=== PATIENT | female | born 1970 | race Caucasian/White ===

== ENCOUNTER 2020-10-19 07:28 | Inpatient (IN) ==
--- NOTE | 2020-10-11 10:36 | PAT Medication Instructions ---
Medication Instructions Date of Service October 11, 2020 Home Medications cholecalciferol (vitamin D3) [Vitamin D3] 0 mcg PO DAILY multivitamin 1 tab PO DAILY omeprazole magnesium [Prilosec OTC] 20 mg PO DAILY PRN turmeric 0 mg PO DAILY ascorbic acid (vitamin C) [Vitamin C] 500 mg PO DAILY ibuprofen 400 mg PO Q8H PRN ASK your surgeon for instructions ibuprofen 400 mg PO Q8H PRN STOP taking 2 weeks before surgery (or as soon as possible if surgery is within 2 weeks) turmeric 0 mg PO DAILY DO NOT take the morning of surgery cholecalciferol (vitamin D3) [Vitamin D3] 0 mcg PO DAILY multivitamin 1 tab PO DAILY ascorbic acid (vitamin C) [Vitamin C] 500 mg PO DAILY Take morning of surgery With a small sip of water, OTHERWISE NOTHING TO EAT OR DRINK AFTER MIDNIGHT: omeprazole magnesium [Prilosec OTC] 20 mg PO DAILY PRN (if needed) Take evening before surgery omeprazole magnesium [Prilosec OTC] 20 mg PO DAILY PRN(if needed) Other Notes If you have any questions please call us at [phone] or [phone] or [phone] or [phone]
--- NOTE | 2020-10-12 09:30 | Anesthesiology Consultation ---
Date of Service October 12, 2020 Assessment & Plan (1) Encounter for pre-operative examination: Chart Review Chart Review: Acceptable Risk for Surgery (pending preop Covid testing and medical necessity statement ) and Patient seen in Pre Admission Testing - Check BSG AM DOS Surgeon's office and patient informed of newly diagnosed DM with Hgb A1C of 7.3 and elevated random glucose. Did send note to PCP with lab results for patient so that patient can follow up as an outpatient. -Surgery will be inpatient procedure- still awaiting medical necessity from surgeon's office. Per [facility] appt on 10/12/20, patient denies any recent travel. No known Covid positive contacts or Covid related symptoms. Pt did test Covid positive on Sep 08, 2020 at [facility]- at that time patient had aches, chills, cough, no smell/no taste. Pt has since completely recovered. Pt had preop Covid testing 10/12/20 at [facility] appt= will await results. History Surgery Operation Date: 10/19/20 12:20 Proposed Procedures p Right Robotic Laparoscopic Assisted Partial Nephrectomy - Juan Diego Rich DO Height/Weight Height: 5 ft 5 in Weight: 104.6 kg Allergies Allergy/AdvReac Type Severity Reaction Status Date / Time bacitracin Allergy Rash Verified 10/11/20 07:59 [From Neosporin ([id number])] neomycin Allergy Rash Verified 10/11/20 07:59 [From Neosporin ([id number])] polymyxin B Allergy Rash Verified 10/11/20 07:59 [From Neosporin ([id number])] Iodinated Contrast Media AdvReac Intermediate Chest Verified 10/11/20 07:59 pain, shortness of breath, throat tightness Medications Home Medications Medication Instructions Recorded Confirmed Last Taken cholecalciferol (vitamin D3) 0 mcg PO DAILY 07/19/20 10/11/20 Unknown [Vitamin D3] multivitamin 1 tab PO DAILY 07/19/20 10/11/20 Unknown omeprazole magnesium [Prilosec OTC] 20 mg PO DAILY PRN 07/19/20 10/11/20 Unknown turmeric 0 mg PO DAILY 07/19/20 10/11/20 Unknown ascorbic acid (vitamin C) [Vitamin 500 mg PO DAILY 10/11/20 10/11/20 Unknown C] ibuprofen 400 mg PO Q8H PRN 10/11/20 10/11/20 Unknown Past Medical History Medical History (Updated 10/12/20 @ 13:13 by Sudha Guo PA-C) Anemia HX- IMPROVED SINCE HYSTERECTOMY Borderline high cholesterol GERD (gastroesophageal reflux disease) WELL CONTROLLED AND STABLE History of COVID-19 Sep 04> TESTED POSITIVE SEP 08- resolved Hx of infection POST OP AFTER HYSTERECTOMY> APR 2020> RECEIVED IV ABX AND ORAL AFTERWARDS> AT [facility], DR. MANN Hyperglycemia Newly dx'ed DM at [facility] appt on 10/12/20; random glucose at [facility] 259 and Hgb A1C 7.3. Did inform surgeon's office and sent labs/note to PCP to follow up as outpatient Renal lesion Exercise / Class Metabolic Activity II 4-5 Yardwork/Stairs/Walk up hill (ONE FLIGHT OF STAIRS- NO CHEST PAIN OR SOB ) Past Family History Family History Mother Hypertension Heart disease Past Surgical History Surgical History History of hysterectomy S/P wisdom tooth extraction Past Anesthesia History No Hx of Anesthesia Complications and No Family Hx of Anesthesia Complications (WITH EXCEPTION TO MOTHER - PONV) History of PONV No Hx of PONV and Hx of Motion Sickness Social History Smoking Status: Light tobacco smoker tobacco type: e-cigarettes Do You Dip or Chew Tobacco: No Hx Alcohol Use: No Hx Substance Use: No substance use type: does not use Review of Systems Occ palpitations with stress and anxiety Hx of snoring- no witnessed apnea - no hx of sleep apnea Patient denies chest pain, shortness of breath, dyspnea on exertion, cough, wheezing. No hx of seizures, stroke, NC. No hx of blood clots or blood transfusions Physical Exam Vital Signs VITALS BP 152/92 P 98 TEMP 98.4 SP02 97% RESP 16 Constitutional no acute distress ENMT Mouth: no TMJ clicking Thyromental Distance: > or= 3.5 Finger Breadths (3.5) Mallampati Class: II [place] on molar Neck neck extension not limited Respiratory normal respiratory effort; no respiratory distress Auscultation: lungs clear to auscultation bilaterally; no wheezes Cardiovascular Rate/Rhythm: regular rate and regular rhythm Heart Sounds: no murmur Vessels: no carotid bruit Musculoskeletal Spine: + pain with cervical ROM (very minimal stiffness ) Extremities: extremities normal to inspection Psychiatric Orientation: alert Testing Laboratory Results 10/12/20 09:55 10/12/20 09:55 Hemoglobin A1c 7.3 % (4.5-5.6) H 10/12/20 09:55 Urine Color Yellow 10/12/20 09:55 Urine Appearance Clear (Clear) 10/12/20 09:55 Urine pH 5.0 (4.5-7.5) 10/12/20 09:55 Ur Specific [place] 1.011 (1.000-1.030) 10/12/20 09:55 Urine Protein Negative (Negative) 10/12/20 09:55 Urine Glucose (UA) Negative (Negative) 10/12/20 09:55 Urine Ketones Negative (Negative) 10/12/20 09:55 Urine Nitrite Negative (Negative) 10/12/20 09:55 Ur Leukocyte Esterase 1+ (Negative) H 10/12/20 09:55 Urine WBC (Auto) 1-5 /hpf (0-5) 10/12/20 09:55 Urine RBC (Auto) 0-4 /hpf (0-4) 10/12/20 09:55 U Hyaline Cast (Auto) 0 /lpf (0-5) 10/12/20 09:55 U Epithel Cells (Auto) >30 /lpf (0-5) H 10/12/20 09:55 Urine Bacteria (Auto) Negative (Negative) 10/12/20 09:55 Blood Type O Positive 10/12/20 09:55 Antibody Screen NEGATIVE 10/12/20 09:55 Electrocardiogram Date: 10/12/20 SR with premature supraventricular complexes 90 bpm. Otherwise normal EKG. Chest X-Ray Date: 10/12/20 Vague peripheral opacities possibly artifactual. Correlation with Covid 19 testing is recommended to help exclude a minimal multifocal pneumonitis. (Pt seen in PAT- lungs CTA, patient has no cardiopulmonary complaints. Pt did test Covid positive in Aug 2020- possible residual opacities- Covid test done 10/12/20= awaiting results).
[2020-10-12 10:24] LABS: Basophils # (auto) 0.02 K/uL (0-0.2); Basophils % (auto) 0.2 %; Eosinophils # (auto) 0.82 K/uL (0-0.5); Eosinophils % (auto) 10.1 %; Hematocrit (blood only) 37.4 % (37-47); Hemoglobin 11.2 g/dL (12.0-16.0); Immature Granulocytes # (auto) 0.06 K/uL (0.00-0.02); Immature Granulocytes % (auto) 0.7 %; Lymphocytes # (auto) 2.02 K/uL (1.2-3.4); Mean Corpuscular Hemoglobin 24.3 pg (25-34); Mean Corpuscular Hgb Conc 29.9 g/dL (32-36); Mean Corpuscular Volume 81.1 fL (80-100); Monocytes # (auto) 0.86 K/uL (0.11-0.59); Monocytes % (auto) 10.6 %; Neutrophils # (auto) 4.31 K/uL (1.4-6.5); Neutrophils % (auto) 53.4 %; Platelet Count 275 K/uL (130-400); RDW Standard Deviation 53.6 fL (36.4-46.3); Red Blood Count 4.61 M/uL (4.2-5.4); White Blood Count 8.09 K/uL (4.8-10.8)
[2020-10-12 10:28] LABS: Appearance Urine Clear (Clear); Bacteria Urine Automated Negative (Negative); Bilirubin Urine Negative (Negative); Blood Urine Negative (Negative); Cast Urine Automated 0 /lpf (0-5); Color Urine Yellow; Epithelial Cell Urine Auto >30 /lpf (0-5); Glucose Urine UA Negative (Negative); Ketones Urine Negative (Negative); Leukocyte Esterase Urine 1+ (Negative); Nitrite Urine Negative (Negative); Protein Urine Negative (Negative); RBC Urine Automated 0-4 /hpf (0-4); Specific Gravity Urine 1.011 (1.000-1.030); Urobilinogen Urine Negative (Negative)
--- NOTE | 2020-10-12 10:29 | XRay Report ---
XR chest 2V PA/lateral CLINICAL HISTORY: Preoperative chest COMPARISON STUDY: 07/19/2020 FINDINGS: The heart is normal in size. There is no failure. There is no lobar consolidation. On the P A film, there are vague peripheral opacities possibly artifactual. These are not confirmed on the lat eral view. Nevertheless a minimal multifocal pneumonitis cannot be excluded. Correlation with Covid 1 9 testing is warranted. IMPRESSION: 1. Vague peripheral opacities possibly artifactual. Correlation with Covid 19 testing is recommended to help exclude a minimal multifocal pneumonitis. ACT 112: Negative or not required by law. Electronically signed by: Jadon Davis M.D. 10/12/2020 10:27 AM
[2020-10-12 10:37] LABS: BUN Creatinine Ratio 10.1 (10-20); Creatinine Clr Calc Pharmacy 75.5 ml/min; Est GFR (African American) 70.1; Est GFR (Non-African American) 60.5; Potassium 4.3 mmol/L (3.5-5.1)
[2020-10-12 12:20] LABS: Estimated Average Glucose 163 mg/dl; Hemoglobin A1C 7.3 % (4.5-5.6)
--- NOTE | 2020-10-13 06:08 | Electrocardiogram Report ---
Test Reason : Blood Pressure : / mmHG Vent. Rate : 090 BPM Atrial Rate : 090 BPM P-R Int : 152 ms QRS Dur : 092 ms QT Int : 384 ms P-R-T Axes : 076 085 054 degrees QTc Int : 469 ms Sinus rhythm with Premature supraventricular complexes Otherwise normal ECG When compared with ECG of 19-JUL-2020 17:08, Premature supraventricular complexes are now Present Confirmed by Juwan Johnson ([id number]) on 10/13/2020 6:08:00 AM Referred By: Juan Diego Rich Confirmed By:Juwan Johnson
[~2020-10-19 07:28] MED LIST: ACETAMINOPHEN 1000 MG/100 ML IV IV ONE; ALBUMIN HUMAN 5% 12.5 GM/250 ML VIAL IV ONE; LACTATED RINGER'S 1,000 ML IV SCH; ceFAZolin 2000MG 2,000 MG/15 ML SYR IV SCH
[2020-10-19] MEDS ORDERED: BUPIVACAINE 0.5 % 5 MG/1 ML MPF 30ML VIAL ONE (07:47)
[2020-10-19] MEDS ORDERED: fentaNYL citrate 100 MCG/2 ML VIAL ONE (08:05)
[2020-10-19] MEDS ORDERED: DEXAMETHASONE SOD INJ 4 MG/ML VIAL ONE (08:05)
[2020-10-19] MEDS ORDERED: PROPOFOL IV EMULSION 10 MG/ML 20 ML VIAL IV ONE (08:05)
[2020-10-19] MEDS ORDERED: GLYCOPYRROLATE 0.2 MG/ML VIAL ONE ×2 (08:05→13:34)
[2020-10-19] MEDS ORDERED: NEOSTIGMINE METHYLSULFATE 5 MG/5 ML SYR ONE (08:05)
[2020-10-19] MEDS ORDERED: LIDOCAINE HCL 2% 2 ML VIAL/AMP(20MG/ML) INFIL ONE (08:05)
[2020-10-19] MEDS ORDERED: ONDANSETRON INJ 2 MG/ML 2 ML VIAL ONE ×2 (08:05→10:00)
[2020-10-19] MEDS ORDERED: MIDAZOLAM HCL 1 MG/ML 2ML VIAL ONE (08:05)
[2020-10-19] MEDS ORDERED: ROCURONIUM BROMIDE 10 MG/ML 5 ML VIAL IV ONE (08:12)
--- NOTE | 2020-10-19 08:27 | History & Physical Report ---
Date of Service October 19, 2020 Assessment & Plan (1) Renal lesion: Right enhancing lesion of the midpole posterior kidney 3.2 cm in size. Risks and benefits discussed at length for procedure. These include bleeding, infection, injury to surrounding tissues or organs, and risks associated with anesthesia. Patient states understanding and agrees to proceed. Will sign consent and proceed. Risks and benefits specifically about laparoscopic and robotic approaches di scussed. Possiblity of open or radical nephrectomy discussed. Discussed effect of renal function. Robotic Asst Laparoscopic Partial Nephrectomy. History of Present Illness Primary Care Provider: Juan Diego Rich, II, DO Patient here for procedure. No changes in medical issues. No major changes in urinary issues. Continued issues and concerns. No change in pain or discomfort. No severe fevers or chills. No chest pain or shortness of breath. Risks and benefits discussed at length for procedure. These include bleeding, infection, injury to surrounding tissues or organs, and risks associated with anesthesia. Patient and/or family states understanding and agrees to proceed. Consent and supporting information completed. Allergies Allergy/AdvReac Type Severity Reaction Status Date / Time bacitracin Allergy Rash Verified 10/19/20 08:03 [From Neosporin ([id number])] neomycin Allergy Rash Verified 10/19/20 08:03 [From Neosporin ([id number])] polymyxin B Allergy Rash Verified 10/19/20 08:03 [From Neosporin ([id number])] Iodinated Contrast Media AdvReac Intermediate Chest Verified 10/19/20 08:03 pain, shortness of breath, throat tightness Home Medications Medication Instructions Recorded Confirmed Type cholecalciferol (vitamin D3) 0 mcg PO DAILY 07/19/20 10/19/20 History [Vitamin D3] multivitamin 1 tab PO DAILY 07/19/20 10/19/20 History omeprazole magnesium [Prilosec OTC] 20 mg PO DAILY PRN 07/19/20 10/19/20 History turmeric 0 mg PO DAILY 07/19/20 10/19/20 History ascorbic acid (vitamin C) [Vitamin 500 mg PO DAILY 10/11/20 10/19/20 History C] ibuprofen 400 mg PO Q8H PRN 10/11/20 10/19/20 History acetaminophen [Tylenol Extra 1,000 mg PO Q6H PRN 10/19/20 10/19/20 History Strength] Past Med/Surg History Medical History Anemia HX- IMPROVED SINCE HYSTERECTOMY Borderline high cholesterol GERD (gastroesophageal reflux disease) WELL CONTROLLED AND STABLE History of COVID-19 Sep 04> TESTED POSITIVE SEP 08- resolved Hx of infection POST OP AFTER HYSTERECTOMY> APR 2020> RECEIVED IV ABX AND ORAL AFTERWARDS> AT [facility], DR. MANN Hyperglycemia Newly dx'ed DM at [facility] appt on 10/12/20; random glucose at [facility] 259 and Hgb A1C 7.3. Did inform surgeon's office and sent labs/note to PCP to follow up as outpatient Renal lesion Surgical History History of hysterectomy S/P wisdom tooth extraction Family History Mother Hypertension Heart disease Social History Smoking Status: Light tobacco smoker Tobacco Type: E-cigarettes / Vaping Second Hand Exposure: No; Do You Dip or Chew Tobacco: No; Tobacco Cessation Education Requested by Patient: No Hx Alcohol Use: No Hx Substance Use: No Preferred Language: Maori Communication Ability: Effective [employer] Required: No Beliefs That Will Affect Care: None marital status: Current Living Situation: Spouse current occupational status: employed Other Information That Helps Us Care for You: No Feels Safe at Home: Yes Safety Concerns: Feels Safe At This Time Assistive Devices: Glasses Review of Systems All systems reviewed & are unremarkable except as noted in HPI & below Physical Exam Physical Exam: General: Alert/Arousable. No Acute illness. . HEENT: Inspection normal. Normal inspection of face. Normal inspection of neck. Psychologic: Normal affect/No change in mentation. Respiratory: No use of accessory muscles. No respiratory changes or exacerbation or changes with tachypnea or dyspnea. Cardiovascular: No tachycardia Skin: Harvest and Dry. No new rashes or visible lesions. Abdomen: Normal inspection. No guarding. Results & Data ([facility]) Vital Signs (Past 12 Hours) Vital Signs Temp Pulse Resp BP Pulse Ox 10/19/20 07:50 36.6 C 81 18 135/85 99 PG Care Time/CCT Total # of Minutes Spent Total Time Spent with Patient: Total time spent is greater than 50% in coordination of care (as documented) at patient's floor/unit and/or counseling patient: Coding Level of Care Code 09374 Initial Inpt Care Lvl 3 Diagnoses Renal lesion N28.9
[2020-10-19] MEDS ORDERED: PROMETHAZINE HCL 12.5 MG in SODIUM CHLORIDE 0.9% 50 ML IV PRN (08:57)
[2020-10-19] MEDS ORDERED: HYDROmorphone INJ 2 MG/ML SYR/VIAL IV PRN (08:57)
[2020-10-19] MEDS ORDERED: ePHEDrine sulfate 50 MG/ML AMP IV PRN (08:57)
[2020-10-19] MEDS ORDERED: ATROPINE SULFATE 0.1 MG/ML 10ML SYR IV PRN (08:57)
[2020-10-19] MEDS ORDERED: ONDANSETRON INJ 2 MG/ML 2 ML VIAL IV PRN ×2 (08:57→16:11)
[2020-10-19] MEDS ORDERED: PHENYLEPHRINE 100MCG/ML 5ML SYR ONE (10:00)
[2020-10-19] MEDS ORDERED: FLOSEAL HEMOSTATIC MATRIX 10ML TOP ONE ×2 (11:55→13:03)
[2020-10-19] MEDS ORDERED: SURGICEL ABSORB HEMOSTAT 2IN X 14IN TOP ONE ×2 (11:55→13:03)
[2020-10-19] MEDS ORDERED: TISSEEL FIBRIN SEALANT 10ML TOP ONE ×2 (11:55→13:03)
[2020-10-19] MEDS ORDERED: PHENYLEPHRINE HCL 10 MG/ML VIAL ONE (12:41)
[2020-10-19] MEDS ORDERED: SODIUM CHLORIDE 0.9% INJ 10 ML VIAL ONE (12:51)
[2020-10-19] MEDS ORDERED: HYDROmorphone INJ 2 MG/ML SYR/VIAL ONE (13:13)
--- NOTE | 2020-10-19 14:07 | Operative Report ---
PG Post Operative Report Pre & Post Diagnosis Operation Date: 10/19/20 09:05 Pre-Op Diagnosis: Renal Lesion, Right Post-Op Diagnosis: Renal Lesion, Right I identified the patient and participated in the time-out.: Yes Procedure Operation Date: 10/19/20 09:05 Actual Procedures p Right Robotic Laparoscopic Assisted Partial Nephrectomy with extensive lysis of adhesions - Juan Diego Rich, Surgeon Juan Diego Rich, II, DO [employer]er Jana Estimated Blood Loss 250 Findings Consistent with Post-Op Diagnosis Mid pole posterior renal mass. Extensive adhesions of the right lateral wall/pelvis Specimens Right renal mass Drains 9 Fr Wei drain 18 Fr Claudio Anesthesia Type General Complications none Disposition Disposition: Recovery Room Indications Patient with right renal mass suspicious for malignancy. Risks and benefits discussed at length. Description of Procedure The patient was brought to the operative suite and placed under general endotracheal intubation anesthesia in the supine position. The patient was transferred to lateral position with the right flank exposed. The patient was placed into a flex'ed position and then placed into mild reverse Trendelenberg. At this point, the patient prepped and draped in the usual sterile fashion and a timeout was completed. Preoperative weight based antibiotics had been given. JOSE CARLOS's and SCD's were placed on the patient's lower extremities. A catheter was placed by nursing using sterile technique. With the time out completed the patient was flexed and the skin was marked. A small incision was anesthetized and was then made into the skin and subcutaneous tissues. A Varess needle was selected and placed. The needle was easily moved and it was irrigated and aspirated without any issues or concerns for placement. Insufflation commenced. The working and camera ports were then planned and the skin A small incision was anesthetized and was then made into the skin and subcutaneous tissues fpr the first 8 mm robotic port. It was placed. The abdominal cavity was further insufflated. The laparoscopic camera was placed and the abdominal cavity inspected. No concerning features were noted. At this point, the skin was marked for port placement and 8mm working ports were placed. The skin was anesthetized down to fascia and an approx 1cm incision was made to place the 2 x 8mm ports. Two 10 mm school bus driver/teacher assistant ports were also placed in similar fashion under direct visualization. An additional 5 mm port was placed for liver retraction. The robot was positioned and docked. The camera was placed and all trocars were positioned under direct visualization. Kimber Mel was integral in port placement, camera utilization, and docking procedure. She also assisted during the extensive lysis of adhesions. She remained in sterile attire and then proceeded to assist the remainder of the case. The colon was mobilized medially to expose the retroperitoneum and the area assessed. Adhesions were freed to allow mobilization. A small amount of further adhesions were noted from the colon and were freed. These were dissected with blunt technique. Cautery was used to assist dissection and control bleeding. The retroperitoneal fat was assessed. Starting distally the retroperitoneum was dissected and care was taken to dissect down near the IVC. The gonadal vein and ureter were identified. This was then followed superiorly. Dissection stayed toward the midline along the IVC and the ureter and gonadal vein were followed up towards the renal hilum. The dissection was followed to the renal pelvis. The Renal Vein was identified and exposed. Dissection was taken further superior. The Renal Artery and Vein were then cleaned and exposed. The artery appeared to have two large branches above and below the renal vein with a third posterior branch. Early branching made it inaccessible with one clamp. Clamp placement was assessed and good access was achieved. A small vein branch from the renal vein had some minor bleeding. This was cauterized then hemostatic surgicel sheet was placed over. The perirenal fat anterior to the kidney was then dissected. The mass and surrounding tissues were exposed. The kidney was then further mobilized. The ultrasound probe was placed and the mass further examined. The edges were marked. The Vessels were assessed a final time. A bulldog clamp was placed on the superior artery and the posterior and inferior artery separately. A third was placed then on the vein. The kidney appropriately blanched. The previously marked margins were used to start the incision into the kidney. The mass was completely excised without evidence of penetrating into the capsule of the mass. The mass was quite deep and dissection was taken down towards the collecting system. Moderate bleeding from the wound was noted. This was likely due to the difficulty with clamp placement. The base of resection bed was assessed and small vessels were cauterized. The first robotic port came free during the transition between equipment. This was replaced by Dr. Garcia who was assissting bedside. The collecting system did appear to be opened in a small area. A 2-0 barbed suture was selected and the nephrotomy closed. Care was taken to close the collecting system opening. 3-0 Vicryl sutures were then used to close the edges of the elliptical opening. Two Vicryl sutures were used to close and bolster the edges. At this point, the bulldog clamps were removed. Warm ischemia time, in total, was 26 minutes with a majority of additional time due to the issues with the robotic port. The kidney was full assessed after removal of clamps. No bleeding or other major areas of concern. Weck and Hemolock clips were used to bolster and tightened to approximate the edges. Surgicel hemostatic agent sheets were placed over the vessels and on the incised edge. Hemostatic agents Tisseel and Floseal were also placed. Hemostatic agent was also placed on the vessels. No major bleeding or other issues. Gerota's tissues was closed with an additional 3-0 Vicryl. The excised mass was placed in an endocatch bag for removal. A Flat drain was placed through the camera port and the port was removed. It was positioned in the gutter lateral to the liver and colon. This was secured with a silk 1-0 suture. The entire dissection space was inspected one final time. No bleeding or injuries or areas of concern were noted. No tumor or other concerning features were noted. At this point, the robot was undocked and moved away from the patient. The port sites were all assessed laparoscopically. The endoscopic bag was moved into the perimedian port. The superior 10mm port site was closed with the Akil- Frederick device and were closed with 1-0 Vicryl suture. The other ports were assessed and no issues observed. The inferior school bus driver/teacher assistant port was opened further exposing fascia which was then opened in order to removed the mass within the bag. A 1-0 Vicryl suture was used to close fascia. The skin at each site was closed with priya The area was cleaned and bandages placed on each incision. The patient was cleaned and bandaged. The patient was moved back into the supine position The patient was cleaned, aroused from anesthesia, and transferred to the pacu in stable condition having tolerated the procedure well with no complications. I was present and participated in all aspects of the procedure. MEREDITH Sears was critical in the portions as mentioned above. Dr. Samson Garcia assisted bedside from clamp placement to clamp removal. I attest to the content of the Intraoperative Record and any orders documented therein. Any exceptions are noted below.
[2020-10-19] MEDS ORDERED: METOPROLOL TARTRATE 1 MG/ML VIAL IV STA (14:45)
[2020-10-19] MEDS ORDERED: METOPROLOL TARTRATE 1 MG/ML VIAL IV ONE (14:45)
[2020-10-19 15:08] LABS: Basophils # (auto) 0.04 K/uL (0-0.2); Basophils % (auto) 0.2 %; Eosinophils # (auto) 0.04 K/uL (0-0.5); Eosinophils % (auto) 0.2 %; Hemoglobin 10.9 g/dL (12.0-16.0); Immature Granulocytes # (auto) 0.07 K/uL (0.00-0.02); Immature Granulocytes % (auto) 0.3 %; Lymphocytes % (auto) 5.9 %; Mean Corpuscular Hemoglobin 24.7 pg (25-34); Mean Corpuscular Volume 83.9 fL (80-100); Mean Platelet Volume 10.3 fL (7.4-10.4); Monocytes # (auto) 0.72 K/uL (0.11-0.59); Monocytes % (auto) 3.3 %; Neutrophils # (auto) 19.94 K/uL (1.4-6.5); Neutrophils % (auto) 90.1 %; Platelet Count 344 K/uL (130-400); RDW Coefficient of Variation 18.2 % (11.5-14.5); RDW Standard Deviation 56.5 fL (36.4-46.3); Red Blood Count 4.41 M/uL (4.2-5.4); White Blood Count 22.11 K/uL (4.8-10.8)
[2020-10-19] MEDS: fentaNYL citrate 100 MCG/2 ML VIAL IV PRN ×2 (15:18→15:23)
[2020-10-19 15:19] LABS: Mean Corpuscular Hgb Conc 29.5 g/dL (32-36)
[2020-10-19 15:31] LABS: BUN Creatinine Ratio 8.4 (10-20); Calcium 8.2 mg/dl (8.5-10.1); Creatinine Clr Calc Pharmacy 66.5 ml/min; Est GFR (African American) 60.4; Est GFR (Non-African American) 52.1; Potassium 4.8 mmol/L (3.5-5.1)
--- NOTE | 2020-10-19 15:31 | Anesthesiology Progress Note ---
Date of Service October 19, 2020 Anesthesia Post Procedure Vital Signs Vital Signs: Temp Pulse Pulse Pulse Resp BP BP 10/19/20 15:20 36.8 C 81 13 10/19/20 15:10 36.8 C 79 11 L 10/19/20 14:50 36.8 C 81 18 10/19/20 14:48 105 H 117/75 10/19/20 14:40 36.8 C 105 H 13 10/19/20 14:30 36.6 C 93 H 14 10/19/20 14:20 36.6 C 95 H 12 10/19/20 14:11 36.6 C 120 H 14 10/19/20 07:50 36.6 C 81 18 135/85 BP Pulse Ox 10/19/20 15:20 105/57 L 93 10/19/20 15:10 117/70 95 10/19/20 14:50 112/81 95 10/19/20 14:48 10/19/20 14:40 122/77 92 10/19/20 14:30 108/75 95 10/19/20 14:20 122/77 92 10/19/20 14:11 140/80 96 10/19/20 07:50 99 Pain Intensity Right Abdomen: Pain Intensity: 3 Transfer of Care Handoff Completed per policy Notes Mental Status: alert / awake / arousable Patient Amnestic to Procedure: Yes Nausea / Vomiting: adequately controlled Pain: adequately controlled Airway Patency, RR, SpO2: stable & adequate BP & HR: stable & adequate Hydration State: stable & adequate Anesthetic Complications: no major complications apparent and Pt Satisfied with anesthetic care Notes: The patient is awake and comfortable. Her vital signs are stable. Her postop hgb is 10.
[2020-10-19] MEDS ORDERED: oxyCODONE HCL IR 5 MG TAB (IMMEDIATE RELEASE) PO PRN (16:11)
[2020-10-19] MEDS ORDERED: MoRPHine SULFATE 4 MG/ML 1 ML CARP\\VIAL IV PRN (16:11)
[2020-10-19] MEDS ORDERED: PANTOprazole 40 MG TAB PO PRN (16:20)
[2020-10-19] MEDS: LACTATED RINGER'S 1,000 ML IV SCH (16:24)
[2020-10-19] MEDS: ceFAZolin 2000MG 2,000 MG/15 ML SYR IV SCH (17:53)
[2020-10-19] MEDS: MoRPHine SULFATE 2 MG/ML CARP IV PRN ×2 (18:00→22:27)
[2020-10-19] MEDS: oxyCODONE HCL IR 5 MG TAB (IMMEDIATE RELEASE) PO PRN (19:38)
[2020-10-20] MEDS: oxyCODONE HCL IR 5 MG TAB (IMMEDIATE RELEASE) PO PRN ×5 (01:11→21:56)
[2020-10-20] MEDS: ceFAZolin 2000MG 2,000 MG/15 ML SYR IV SCH (01:12)
[2020-10-20] MEDS: LACTATED RINGER'S 1,000 ML IV SCH ×3 (01:13→21:56)
[2020-10-20] MEDS: MoRPHine SULFATE 2 MG/ML CARP IV PRN ×3 (04:27→19:46)
[2020-10-20 07:51] LABS: Basophils # (auto) 0.02 K/uL (0-0.2); Basophils % (auto) 0.2 %; Eosinophils # (auto) 0.02 K/uL (0-0.5); Eosinophils % (auto) 0.2 %; Hematocrit (blood only) 33.1 % (37-47); Hemoglobin 9.5 g/dL (12.0-16.0); Immature Granulocytes # (auto) 0.04 K/uL (0.00-0.02); Immature Granulocytes % (auto) 0.3 %; Lymphocytes # (auto) 1.59 K/uL (1.2-3.4); Lymphocytes % (auto) 13.1 %; Mean Corpuscular Hemoglobin 24.4 pg (25-34); Mean Corpuscular Hgb Conc 28.7 g/dL (32-36); Mean Corpuscular Volume 85.1 fL (80-100); Mean Platelet Volume 10.2 fL (7.4-10.4); Monocytes # (auto) 0.98 K/uL (0.11-0.59); Neutrophils # (auto) 9.53 K/uL (1.4-6.5); Neutrophils % (auto) 78.2 %; Platelet Count 328 K/uL (130-400); RDW Standard Deviation 59.2 fL (36.4-46.3); Red Blood Count 3.89 M/uL (4.2-5.4); White Blood Count 12.18 K/uL (4.8-10.8)
[2020-10-20 08:01] LABS: BUN Creatinine Ratio 9.2 (10-20); Calcium 8.5 mg/dl (8.5-10.1); Creatinine Clr Calc Pharmacy 53.6 ml/min; Est GFR (African American) 46.6; Est GFR (Non-African American) 40.2; Potassium 3.8 mmol/L (3.5-5.1)
--- NOTE | 2020-10-20 08:40 | Urology Progress Note ---
Date of Service October 20, 2020 Assessment & Plan (1) Renal lesion: 50 yo F POD#1 s/p right robotic assisted laparoscopic partial nephrectomy with Dr. Rich. - Afebrile, labs reviewed and as expected - Claudio catheter discontinued this morning, continue to monitor, bladder scan prn - Continue SHAWN drain and management - Encourage OOB ambulation, incentive spirometer and cough and deep breathing - Start Heparin tonight per Dr. Rich - Tolerating clear liquids, will advance diet today as tolerated - Utilizing PO and IV pain medication at regular intervals - Continue supportive care and prn analgesia, transition to PO prior to discharge - She does not feel ready for discharge at this time, anticipate discharge tomorrow - Expected clinical course reviewed, all questions answered Admission and Anticipated Discharge Date Admission Date: October 19, 2020 Subjective 50 yo F POD#1 s/p right robotic assisted laparoscopic partial nephrectomy with Dr. Rich. Pt seen and examined at bedside this AM. Awake, alert, and sitting up at the side of the bed. No acute issues overnight, though reports she did not sleep well due to pain. Reports right flank and incisional pain, worse with movement. Utilizing PO oxycodone and IV morphine regularly, reports mild relief. Tolerating clear liquid diet, no nausea or vomiting. Feels ready to advance diet. No BM since surgery. Claudio catheter intact, patent, and draining clear yellow urine. No dysuria or hematuria. Has not been out of bed ambulating yet. No fever or chills. Chart review: Afebrile. Creatinine 1.5, WBC 12.18, Hgb 9.5, SHAWN output 150 mL this AM. Review of Systems Constitutional: as per Subjective / HPI Gastrointestinal: as per Subjective / HPI Genitourinary: as per Subjective / HPI Physical Exam Constitutional: well developed, well nourished and + obese; no acute distress and not ill appearing Eyes: no scleral abnormality Respiratory: normal respiratory effort and able to speak in complete sentences; no respiratory distress and no labored breathing Cardiovascular: Extremities: no calf tenderness and no pedal edema Gastrointestinal (Abdomen): Inspection/Auscultation: abdomen normal to inspection; abdomen not distended Percussion/Palpation: abdomen soft; abdomen nontender and no guarding Musculoskeletal: Head/Neck/Chest: normocephalic and head atraumatic Extremities: extremities normal to inspection Skin: Surgical dressings removed during exam. Surgical incisions with priya intact, well-approximated, no significant erythema or warmth. SHAWN drain intact - sanguinous output, small amount of sanguinous drainage on dressing. Neurologic: moves all extremities and awake Psychiatric: Orientation: alert and oriented x 3 Genitourinary: no CVA tenderness Claudio intact, patent, and draining clear yellow urine. RN discontinued Claudio catheter during exam per orders. Results & Data ([facility]) Vital Signs (Past 12 Hours) Vital Signs Temp Pulse Resp BP BP Pulse Ox 10/20/20 07:19 36.9 C 100 H 19 109/73 90 10/20/20 03:15 37.4 C 91 H 14 102/68 94 10/19/20 23:22 37.1 C 84 14 115/74 92 PG Care Time/CCT Total # of Minutes Spent Total Time Spent with Patient: Total time spent is greater than 50% in coordi nation of care (as documented) at patient's floor/unit and/or counseling patient: Coding Level of Care Code 28147 Subseq Hosp Care Lvl 2 Diagnoses Renal lesion N28.9
[2020-10-20] MEDS: ASCORBIC ACID 500 MG TAB PO SCH (08:46)
[2020-10-20] MEDS: MULTIVITAMIN TAB PO SCH (08:46)
[2020-10-20] MEDS ORDERED: HEPARIN SOD 5,000 UNIT/0.5 ML VIAL SQ SCH (09:00)
--- NOTE | 2020-10-20 17:14 | Hospitalist Consultation ---
Date of Consultation October 20, 2020 Assessment & Plan (1) Renal lesion: -Status post partial right nephrectomy on 10/19/[address] Rich -Continue pain control, antiemetics, ambulate, bowel regimen per primary team -Abdominal distension and pain with minimal palpation is concerning for development of ileus, also will keep in mind retroperitoneal bleed with anterior abd surgery. - Ordered 1x dose of dilaudid for pain, KUB, CXR stat - Discussed with Dr. Garcia regarding this - agrees with imaging, also make NPO for now. - moisture under O2, cough drops for mouth dryness and feeling of phlegm. She refused mucinex. - Urine outs are good with being on fluids, ambulating to bathroom, consider turning off fluids pending CXR results. - if worsening abd pain consider CT scan to eval, follow am labs, holding anticoagulation with recent surgery. - Diet changed to diabetic to help to improve glucose (2) New onset type 2 diabetes mellitus: -A1c = 7.3 on 10/12/2020, diagnosed at PAT testing prior to this admission for partial right nephrectomy -DM education consult -encourage follow up with after discharge for continuity -Encourage diet and exercise, BMI 38.1 and likely could improve and reverse DM if lost enough weight. As per HPI. Pt is agreeable to these modalities for improved wound healing. She had gestational DM with , no other family hx of DM that she is aware of. -May consider starting insulin vs oral agent upon dc to help with improved healing s/p surgery, encourage weight with diet and exercise. -ISS with Accu-Cheks ACHS while admitted -Will need to have glucometer and Rx for testing strips upon discharge - Once allowed PO intake make sure diabetic diet (3) Obesity (BMI 30-39.9): - Diet and exercise as above, goal 10-20 lbs weight loss over next few months. (4) GERD (gastroesophageal reflux disease): - Continue omeprazole 20 mg daily DVT ppx: ambulation CODE: FULL code Dispo: From home, discharge per primary team Thank you for involving us in the care of Mrs. Frederick. Please do not hesitate to call with questions or concerns. Medicine service will follow along. (5) Acute blood loss anemia: (6) Acute postoperative pulmonary insufficiency: (7) History of COVID-19: Supervising Physician Co-Signing Physician Notes Attending Attestation and Consult Note: Pt seen and examined, chart reviewed, care plan d/w PA Oriana Arellanolibia. I agree w/ the morrissey components of her documentation. 50yo female who is POD #1 from right-sided robotically assisted partial nephrectomy. We were consulted for DM management and post-op medical management. During Ms Acevedo's visit and my visit patient c/o abd distension, right sided abdominal discomfort, mild dyspnea. She was hypoxic and was requiring NC O2. Denies passage of flatus since her surgery yesterday. Denies h/o VTE personally or in her family. During my visit the surgical PA was at bedside doing his evaluation as well. PMH, PSH, allergies, meds, sochx, famhx - reviewed vitals - tachy, o2 sats low 90s on NC O2, afebrile gen - uncomfortable, awake, alert mouth - MM dry neck - no JVD heart - tachy, s1 s2 lungs - decreased BS both bases, worse on right; mild rales R base; no wheeze abd - distended, BS+ but very decreased, multiple incisions, drain in place on right, no HSM ext - no edema, pulses 2+ b/l labs reviewed cxr reviewed (low lung volumes, atelectasis) abd x-rays reviewed (ileus) EKG - sinus tach A/P: 1. acute post-op pulmonary insufficiency - 2nd to atelectasis, no evidence of pulm edema on exam or x-ray. Cannot exclude PE - at risk of such in light of COVID diagnosis in August, surgery, etc. Agree with surgical PA - check dopplers of legs, r/o DVT. Consider V/Q (vs CTA chest with pre-CT steroid protocol -- has contrast allergy). Better pulmonary toilet, incentive, etc. 2. acute blood loss anemia - trend CBC. Agree w/ CT abd/pelvis - r/o post-op hematoma in light of tachycardia. 3. sinus tachycardia - 2nd to pain, anxiety, acute blood loss anemia. Can't rule out PE. see above. 4. ileus - defer management to surgery. NPO, IV fluids. 5. T2DM - novolog SSI; consider lantus if needed. Dru Ac MD History of Present Illness Reason for Consultation: Hyperglycemia, post op medical management Requesting Physician: Dr. Rich Attending Physician: Juan Diego Rich, II, DO History of Present Illness This is a 50 yo F with PMHx of new onset DM II with A1C of 7.3 and prior to preo p testing pt was unaware of this diagnosis of diabetes. Other PMHx includes GERD and renal lesion where she underwent Right robotic lap partial nephrectomy with extensive lysis of adhesion by Dr. Rich on 10/19/20. Medicine has been consulted for hyperglycemia. She was evaluated this evening, and found standing, swaying, with diffuse abdominal pain and distension, saying that nothing seemed to make her comfortable. She is currently eating ice cream. She denies feeling feverish, no sweats, no chills. States that during her hysterectomy that she had minimal pain compared to this. She reports that she is using the pain medications available to her, but does not seem to be helping much. She has not yet moved her bowels, and feels very distended. Pt is urinating without difficulty, clear yellow, no hematuria. Tolerated full liquid diet at dinner without difficulty, no vomiting, no nausea. Pt notes she has some phlegm in the back of her throat, and requests some cough drops. Pt also wearing O2 at bedside but typically does not require this. We discussed the new onset DM II. Pt admits to having gestational with one of her pregnancies, but cannot recall with which one. Her children at 19 and 15 years old. She is very motivated to eat healthier and lose weight. Diet soda is something we discussed and she said would try to drink water in place of this, as well as choosing to eat less carbohydrates and sugary things, such as the ice cream she's requesting currently. Discussed a goal of 10 lbs within the next 2-3 months to start, and then try to loose additional 10 lbs to total 20. clinical educator visited her already today, and is agreeable to following as an outpatient. Allergies Allergy/AdvReac Type Severity Reaction Status Date / Time bacitracin Allergy Rash Verified 10/19/20 08:03 [From Neosporin ([id number])] neomycin Allergy Rash Verified 10/19/20 08:03 [From Neosporin ([id number])] polymyxin B Allergy Rash Verified 10/19/20 08:03 [From Neosporin ([id number])] Iodinated Contrast Media AdvReac Intermediate Chest Verified 10/19/20 08:03 pain, shortness of breath, throat tightness Home Medications Medication Instructions Recorded Confirmed Type cholecalciferol (vitamin D3) 0 mcg PO DAILY 07/19/20 10/19/20 History [Vitamin D3] multivitamin 1 tab PO DAILY 07/19/20 10/19/20 History omeprazole magnesium [Prilosec OTC] 20 mg PO DAILY PRN 07/19/20 10/19/20 History turmeric 0 mg PO DAILY 07/19/20 10/19/20 History ascorbic acid (vitamin C) [Vitamin 500 mg PO DAILY 10/11/20 10/19/20 History C] ibuprofen 400 mg PO Q8H PRN 10/11/20 10/19/20 History acetaminophen [Tylenol Extra 1,000 mg PO Q6H PRN 10/19/20 10/19/20 History Strength] docusate sodium [Colace] 100 mg PO BID #60 cap 10/20/20 Rx oxycodone-acetaminophen [Percocet] 1 tab PO TID PRN #14 tab 10/20/20 Rx Patient History Medical History Anemia HX- IMPROVED SINCE HYSTERECTOMY Borderline high cholesterol GERD (gastroesophageal reflux disease) WELL CONTROLLED AND STABLE History of COVID-19 Sep 04> TESTED POSITIVE SEP 08- resolved Hx of infection POST OP AFTER HYSTERECTOMY> APR 2020> RECEIVED IV ABX AND ORAL AFTERWARDS> AT [facility], DR. MANN Hyperglycemia Newly dx'ed DM at [facility] appt on 10/12/20; random glucose at [facility] 259 and Hgb A1C 7.3. Did inform surgeon's office and sent labs/note to PCP to follow up as outpatient Renal lesion Surgical History History of hysterectomy S/P wisdom tooth extraction Family History Mother Hypertension Heart disease Social History Smoking Status: Light tobacco smoker Tobacco Type: E-cigarettes / Vaping Second Hand Exposure: No; Do You Dip or Chew Tobacco: No; Tobacco Cessation Education Requested by Patient: No Hx Alcohol Use: No Hx Substance Use: No Preferred Language: Indonesian Communication Ability: Effective Commercial Real Estate Manager Required: No Beliefs That Will Affect Care: None marital status: Current Living Situation: Spouse current occupational status: employed Other Information That Helps Us Care for You: No Feels Safe at Home: Yes Safety Concerns: Feels Safe At This Time Assistive Devices: None Review of Systems Review of Systems: Constitutional: No fever, sweats or chills, + appears uncomfortable, standing, swaying Eyes: No diplopia, no worsening or blurred vision ENT: normal hearing, no trouble swallowing Respiratory: No cough, sputum, dyspnea at rest or on exertion Cardiovascular: No chest pain, tightness or palpitations Abdomen: + diffuse pain,+ distended, no nausea, vomiting, diarrhea, no BM yet Musculoskeletal: No joint pain, calf pain, swelling Neurologic: No weakness, numbness/tingling, or balance problems Psychiatric: No anxiety or depression Skin: No rash or itch Physical Exam Physical Exam: General: awake, alert, obvious discomfort, standing and swaying attempting to find a comfortable position, + obese Head: Normocephalic, atraumatic ENT: PERRL, EOMI, no pharyngeal exudate, mucous membranes moist Chest: Clear to auscultation, on 2 L via NC, no adventitious breath sounds Cardiac: Regular rate and rhythm, no murmur, no JVD, normal peripheral pulses, good capillary refill Abdominal: NABS x 4 quadrants, +distended, + abdominal SHAWN drain in place, multiple dressings with priya underneath intact, no surrounding erythema or edema. + pain with minimal palpation, no rebound or guarding Extremities: Normal inspection, no peripheral edema or erythema, calfs nontender to palpation Psych: Normal mood and affect Neuro: AAO x 3, strength intact bilaterally and rated 5/5, no motor deficits, speech is clear, no peripheral sensory deficits Results & Data Results & Data ([facility]) Vital Signs (Past 12 Hours) Vital Signs Temp Pulse Resp BP Pulse Ox 10/20/20 15:17 36.9 C 122 H 18 127/77 92 10/20/20 07:19 36.9 C 100 H 19 109/73 90 PG Care Time/CCT Total # of Minutes Spent Total Time Spent with Patient: Total time spent is greater than 50% in coordination of care (as documented) at patient's floor/unit and/or counseling patient: Coding Level of Care Code 36237 Inpt Consult Level 5 Diagnoses Renal lesion N28.9 New onset type 2 diabetes mellitus E11.9 Obesity (BMI 30-39.9) E66.9 GERD (gastroesophageal reflux disease) K21.9 Acute blood loss anemia D62 Acute postoperative pulmonary insufficiency J95.2 History of COVID-19 Z86.16
[2020-10-20] MEDS ORDERED: CARBOHYDRATES FOR HYPOGLYCEMIA PO PRN (17:25)
[2020-10-20] MEDS ORDERED: GLUCAGON FOR INJ 1 MG VIAL SQ PRN (17:25)
[2020-10-20] MEDS ORDERED: DEXTROSE 50% 50 ML SYRINGE IV PRN (17:25)
[2020-10-20] MEDS ORDERED: GLUCOSE 10 TABS/TUBE PO PRN (17:25)
[2020-10-20] MEDS ORDERED: GLUCOSE 40% GEL 15 GM TUBE PO PRN (17:25)
[2020-10-20] MEDS ORDERED: HYDROmorphone INJ 1 MG/ML SYRINGE IV STA (17:45)
[2020-10-20] MEDS ORDERED: COUGH DROP (SUGAR FREE) LOZ 24 LOZ/1 BOX BUCCAL PRN (17:45)
--- NOTE | 2020-10-20 19:20 | XRay Report ---
XR chest 1V portable CLINICAL HISTORY: Desaturation to 85% on RA COMPARISON STUDY: Chest radiograph October 12, 2020. FINDINGS: Lung volumes are mildly diminished. There is no pneumothorax or pleural effusion. Cardiac s ize is normal. Mediastinal contours are normal. Bibasilar opacities are noted. Right basilar opacity is somewhat nodular. IMPRESSION: Low lung volumes with bibasilar opacities which may reflect atelectasis or an infectious process. ACT 112: Negative or not required by law. Electronically signed by: Mateo Echeverria M.D. 10/20/2020 7:19 PM
--- NOTE | 2020-10-20 19:22 | XRay Report ---
KUB CLINICAL HISTORY: abdominal distension, pain, r/o ileus COMPARISON STUDY: CT of the abdomen and pelvis July 19, 2020. FINDINGS: Right abdominal drain is in place. There are skin priya. Mild gaseous distention of the c olon is noted. No dilated loops of small bowel are noted. No urinary calculi are identified. IMPRESSION: Mild gaseous distention of the colon. This may reflect an ileus. ACT 112: Negative or not required by law. Electronically signed by: Mateo Echeverria M.D. 10/20/2020 7:20 PM
[2020-10-20] MEDS: HEPARIN SOD 5,000 UNIT/0.5 ML VIAL SQ SCH (19:47)
--- NOTE | 2020-10-20 20:50 | Communication Note ---
Date of Service: October 20, 2020 I was called by this patient's earlier this evening. He was concerned that he had not heard from his throughout the day. I have visited with the patient at bedside and discussed her care with her bedside nurse. He notes that she is having oxygenation issues with hypoxia with a pulse ox in the 85% range. It is noted that the patient is receiving intravenous morphine along with intravenous Dilaudid for pain as well as oral oxycodone. Upon examining the patient she notes that she has pain on her right side near her surgical incisions. She notes this makes it difficult for her to take deep breaths. Patient was noted to be alert and oriented x3. Her lungs were decreased at the bases. I suspect her hypoxia is likely multifactorial from splinting due to postoperative pain along with decreased respiratory drive from use of opioid analgesics. I discussed with the patient the importance of using her incentive spirometer as well as ambulation. We will continue to follow her closely while she is in the hospital. Is noted to mention that she is postop day #1 from a right partial nephrectomy. DVT prophylaxis in the form of subcutaneous heparin has been initiated this evening. Attending addendum: Discussed the case and options, agree with above assessment and concerns regarding the differential diagnosis. Noted clinical change raises concerns. KUB and CXR reviewed. Will move forward first with a CT abd (non-con) now to r/o post operative bleed. H and H ordered. Pending results of the CT, possible lower extremity doppler US to r/o DVT. Contrast allergy noted - limiting safety/utility of ordering a chest CT.
[2020-10-20] MEDS: INSULIN ASPART 100 UNITS/ML 3 ML PEN SC SCH (21:26)
[2020-10-20 22:01] LABS: Hematocrit (blood only) 33.2 % (37-47); Hemoglobin 9.8 g/dL (12.0-16.0)
--- NOTE | 2020-10-21 00:03 | Communication Note ---
Date of Service: October 21, 2020 I was notified by the patient's nurse that she became markedly tachycardic after ambulating. Her oxygen saturation also dropped to 82% with ambulation. Upon resting in bed her saturation improved to 92% utilizing 2 L of oxygen via nasal cannula however she remained tachycardic. I did perform a twelve-lead EKG that showed sinus tachycardia. Patient continues to note pain at her surgical site limiting deep inspiration. Due to her persistent tachycardia and hypoxia we considered obtaining a CT scan of the chest to evaluate for PE, however this was not done as the patient has an allergy to IV contrast. After discussion with the hospitalist team as well as urology attending we decided to get lower extremity venous Dopplers to assess for DVT. The study was performed and no DVT was identified. In addition, we obtained a noncontrast CT scan of her abdomen and pelvis to assess for enlarging hematoma at the surgical site. Small amount of fluid suggestive of a hematoma at the operative site was noted however this was small. We will continue to monitor the patient closely. She continues to have tachycardia as well as hypoxic episodes we may consider obtaining a V/Q scan tomorrow.
[2020-10-21] MEDS: oxyCODONE HCL IR 5 MG TAB (IMMEDIATE RELEASE) PO PRN ×2 (02:12→07:43)
[2020-10-21 06:09] LABS: Basophils # (auto) 0.03 K/uL (0-0.2); Basophils % (auto) 0.2 %; Eosinophils # (auto) 0.18 K/uL (0-0.5); Eosinophils % (auto) 1.3 %; Hematocrit (blood only) 29.2 % (37-47); Hemoglobin 8.6 g/dL (12.0-16.0); Immature Granulocytes # (auto) 0.03 K/uL (0.00-0.02); Immature Granulocytes % (auto) 0.2 %; Lymphocytes # (auto) 1.56 K/uL (1.2-3.4); Lymphocytes % (auto) 11.5 %; Mean Corpuscular Hemoglobin 24.9 pg (25-34); Mean Corpuscular Hgb Conc 29.5 g/dL (32-36); Mean Corpuscular Volume 84.4 fL (80-100); Mean Platelet Volume 9.7 fL (7.4-10.4); Monocytes # (auto) 1.35 K/uL (0.11-0.59); Neutrophils # (auto) 10.37 K/uL (1.4-6.5); Neutrophils % (auto) 76.8 %; Platelet Count 290 K/uL (130-400); RDW Standard Deviation 58.7 fL (36.4-46.3); Red Blood Count 3.46 M/uL (4.2-5.4); White Blood Count 13.52 K/uL (4.8-10.8)
--- NOTE | 2020-10-21 06:13 | Communication Note ---
Date of Service: October 21, 2020 Discussed with restaurant shift leader RN. Patient continues to have episodes of hypoxia with oxygen saturations between 82 and 85% on room air. This does improve to greater than 90% with supplemental oxygen. She notes that the patient has having episodes of confusion throughout the night. She is attempted to limit the amount of narcotic pain medications the patient is receiving due to her confusion. I visited with the patient this morning at approximately 6:00 AM. She denies dyspnea. She does note continued pain on the right side of her abdomen as well as right flank. She does not report any chest pain. She denies nausea or vomiting. At the time of my visit with the patient she was alert and oriented x3. She knew she was in the hospital, she knew the date, and she knew she had surgery and what type of surgery she had. On exam the patient is noted to have a blood pressure of 121/72. She remains tachycardic with a heart rate in the 120s. Her respirations are 16-20 and are nonlabored. She has been afebrile. Also ox is noted to be 92% on 1 L via nasal cannula. Patient's breath sounds are decreased at the bases bilaterally. Her abdomen is distended with markedly hypoactive bowel sounds. She does have tenderness to palpation on the right side of her abdomen where her surgical incisions are present. She does not have any calf tenderness. She is able to move all 4 extremities and follows simple commands. As stated previously the patient's hypoxia could be multifactorial and include etiology such as splinting from postoperative pain as well as respiratory suppression from opioid analgesics. Unfortunately the patient has a listed allergy to IV contrast and therefore we did not obtain a CT scan of the chest to assess for PE. Lower extremity venous Dopplers were performed last night and were negative for DVT bilaterally. Patient also had a CT scan of her abdomen and pelvis that did show some fluid in the surgical site. Hemoglobin and hematocrit last night did not show any significant drop in these values. Labs this morning show white blood cell count 13.5. Her hemoglobin hematocrit are now 8.6 and 29.2 which is a slight drop from yesterday's values. Platelet count is noted to be normal. Her chemistry profile is pending. Patient was noted to have a postoperative ileus on her KUB yesterday. As her abdomen remains distended we will keep her n.p.o. with plans to advance her diet once this postoperative ileus improves. We will continue to follow closely and intervene as clinically indicated.
[2020-10-21 06:35] LABS: BUN Creatinine Ratio 7.9 (10-20); Calcium 8.2 mg/dl (8.5-10.1); Creatinine Clr Calc Pharmacy 61.4 ml/min; Est GFR (African American) 54.9; Est GFR (Non-African American) 47.4; Potassium 3.6 mmol/L (3.5-5.1)
--- NOTE | 2020-10-21 07:44 | Ultrasound Report ---
BILATERAL LOWER EXTREMITY VENOUS DOPPLER CLINICAL HISTORY: hypoxia; assess for DVT COMPARISON STUDY: No previous studies for comparison. TECHNIQUE: Sonography of the deep venous system of the bilateral lower extremities was performed. Co mpression and augmentation were evaluated. FINDINGS: The bilateral common femoral, superficial femoral and popliteal veins were compressible. A ugmentation was normal. Flow was shown within the deep calf vessels. IMPRESSION: No evidence of deep venous thrombus within the bilateral lower extremities. ACT 112: Negative or not required by law. Electronically signed by: Mateo Echeverria M.D. 10/21/2020 7:42 AM
--- NOTE | 2020-10-21 08:00 | CT Scan Report ---
CT OF THE ABDOMEN AND PELVIS WITHOUT CONTRAST CLINICAL HISTORY: s/p nephrectomy/assess for hematoma COMPARISON STUDY: CT of the abdomen July 19, 2020. TECHNIQUE: Axial images of the abdomen and pelvis were obtained without IV contrast. Images were revi ewed in the axial, sagittal, and coronal planes. Automated exposure control was utilized for the prasanna dy. A dose lowering technique was utilized adhering to the principles of ALARA. FINDINGS: Visualized portions of the lower chest demonstrate moderate lower lung opacities. Atelectas is is favored. Evaluation of the abdomen and pelvis is suboptimal on this unenhanced examination. The re are postoperative findings consistent with a partial right nephrectomy with resection of the right mid pole renal lesion. Evaluation is suboptimal on this unenhanced examination. Surgical drain is in place. There are no unexpected radiopaque foreign bodies. A small amount of right perinephric and pa rarenal fluid and hemorrhage is present. No large hematoma is present. As expected, there is gas with in the operative bed. There are skin priya. Marked hepatic steatosis is noted. Unenhanced images of the spleen, adrenal glands, left kidney and pancreas are unremarkable. There is mild gaseous distent ion of the colon. There is no transition point. The appendix is normal. Note is made of a 3.9 cm mass -like focus within the left lower quadrant on image 388. This could simply represent a portion of the colon at the junction of the descending colon and the sigmoid colon. However, a lesion cannot be exc luded. No suspicious osseous lesions are noted. There is a left ovarian follicle. IMPRESSION: 1. Status post partial nephrectomy within the right kidney with resection of the midpole lesion. Subo ptimal evaluation on this unenhanced examination. Small amount of right perirenal and pararenal fluid and hemorrhage which extends inferiorly. No large hematoma. Small amount of gas within the operative bed which is expected. Surgical drain in place. 2. 3.9 cm mass-like focus within the left lower quadrant. This could simply represent a portion of th e colon on this unenhanced exam. However, a mass cannot be excluded. A follow-up outpatient CT of the abdomen and pelvis with IV and oral contrast is recommended for further evaluation. 3. Extensive lower lung opacities which favor atelectasis. 4. Mild colonic distention with favors an ileus. No transition point. 5. Severe hepatic steatosis. ACT 112: Negative or not required by law. Electronically signed by: Mateo Echeverria M.D. 10/21/2020 7:59 AM
--- NOTE | 2020-10-21 08:35 | Hospitalist Progress Note ---
Date of Service October 21, 2020 Assessment & Plan (1) Acute postoperative pulmonary insufficiency: Disc ussed with Urology and reviewed with physician on prior shift. At this time the patient is sitting comfortably with 1 L nasal cannula Vital signs have stabilized and tachycardia is resolving. EKG with no acute changes, CT of the abdomen pelvis obtained and reviewed by Urology no specific concerns with the radiologic exam at this time per Urology. Concerns for potential pulmonary embolism with risks factors however evaluation with ultrasound of the lower extremities was negative. As the patient has been improving will hold on a V/Q scan or CT scan at this time. A started albuterol on a p.r.n. basis along with pain control. If there is any change in the patient's status during the day would not hesitate to obtain additional imaging. (2) Renal lesion: -Status post partial right nephrectomy on 10/19/[address] Rich -Continue pain control, antiemetics, ambulate, bowel regimen per primary team Vital signs are stable Improved with oral pain medication Dietary control per the primary team, (3) New onset type 2 diabetes mellitus: Plan on ADA diet when able Continue current regimen of insulin Blood sugar readings well controlled Patient will need follow-up with her primary care to establish outpatient medications. (4) GERD (gastroesophageal reflux disease): - Continue omeprazole 20 mg daily DVT ppx: ambulation CODE: FULL code Dispo: From home, discharge per primary team Thank you for involving us in the care of Mrs. Frederick. Please do not hesitate to call with questions or concerns. Medicine service will follow along. (5) Acute blood loss anemia: Stable labs at this time, no concerns on CT scan (6) History of COVID-19: (7) Obesity (BMI 30-39.9): - Diet and exercise , planned on going home outpatient evaluation with primary care long-term success. Admission and Anticipated Discharge Date Admission Date: October 19, 2020 Subjective Overnight the patient had EKG increasing dyspnea, anxiety and low pulse ox which she was started on nasal cannula 1-2 L. This morning she is improved, continues to be slightly tachycardic but her overall breathing has improved with the 1 L oxygen She notes some sensations of anxiety along with the breathing but overall improved compared to last night. Her pain could be better controlled which she feels is contributing to her difficulty breathing. Unable to take a deep breath due to discomfort. No reported fevers chills nausea vomiting diarrhea. Mild to moderate right-sided discomfort Review of Systems Review of Systems: All systems reviewed & are unremarkable except as noted in Subjective Physical Exam Physical Exam: Constitutional: WD/WN, vitals as above Lymphatic: No cervical lymphadenopathy Respiratory: Shallow inspiration, normal respiratory rate, no wheeze or rales noted CV: RRR, no murmur, min edema Abdomen: normal bowel sounds, soft, nontender, Results & Data Results & Data ([facility]) Vital Signs (Past 12 Hours) Vital Signs Temp Pulse Resp BP BP Pulse Ox 10/21/20 07:49 120 H 93 10/21/20 07:48 122 H 84 L 10/21/20 07:13 37.1 C 118 H 20 132/78 91 10/20/20 23:12 37.3 C 126 H 18 121/72 92 10/20/20 21:16 82 L Laboratory Results Laboratory Results - last 24 hr 10/20/20 10/20/20 10/20/20 12:08 20:41 21:50 WBC RBC Hgb 9.8 L Hct 33.2 L MCV MCH MCHC RDW Std Deviation RDW Coeff of Veronique Plt Count MPV Immature Gran % (Auto) Neut % (Auto) Lymph % (Auto) [place] % (Auto) Eos % (Auto) Baso % (Auto) Neut # (Auto) Lymph # (Auto) [place] # (Auto) Eos # (Auto) Baso # (Auto) Immature Gran # (Auto) Sodium Potassium Chloride Carbon Dioxide Anion Gap BUN Creatinine Est Cr Clr Drug Dosing Est GFR ( Amer) Est GFR (Non-Af Amer) BUN/Creatinine Ratio Glucose POC Glucose 188 H 151 H Calcium 10/21/20 10/21/20 10/21/20 05:17 05:17 05:58 WBC 13.52 H RBC 3.46 L Hgb 8.6 L Hct 29.2 L MCV 84.4 MCH 24.9 L MCHC 29.5 L RDW Std Deviation 58.7 H RDW Coeff of Veronique 19.0 H Plt Count 290 MPV 9.7 Immature Gran % (Auto) 0.2 Neut % (Auto) 76.8 Lymph % (Auto) 11.5 [place] % (Auto) 10.0 Eos % (Auto) 1.3 Baso % (Auto) 0.2 Neut # (Auto) 10.37 H Lymph # (Auto) 1.56 [place] # (Auto) 1.35 H Eos # (Auto) 0.18 Baso # (Auto) 0.03 Immature Gran # (Auto) 0.03 H Sodium 140 Potassium 3.6 Chloride 109 H Carbon Dioxide 27 Anion Gap 4.0 BUN 10 Creatinine 1.31 H Est Cr Clr Drug Dosing 61.4 Est GFR ( Amer) 54.9 Est GFR (Non-Af Amer) 47.4 BUN/Creatinine Ratio 7.9 L Glucose 125 H POC Glucose 142 H Calcium 8.2 L Medications Administered Current Inpatient Medications Acetaminophen (Acetaminophen 325 Mg Tab) 650 mg PO Q6H PRN PRN Reason: Pain & Pre PT Stop: 11/18/20 16:10 Ascorbic Acid (Ascorbic Acid 500 Mg Tab) 500 mg PO DAILY BOZENA Stop: 11/19/20 08:59 Last Admin: 10/20/20 08:46 Dose: 500 mg Documented by: Dextrose (Dextrose 50% 50 Ml Syringe) 25 - 50 ml IV UD PRN; Protocol PRN Reason: Hypoglycemia Protocol Stop: 11/19/20 17:24 Glucagon (Glucagon For Inj 1 Mg Vial) 1 mg SQ UD PRN; Protocol PRN Reason: Hypoglycemia Protocol Stop: 11/19/20 17:24 Glucose (Glucose 10 Tabs/Tube) 4 - 8 tabs PO UD PRN; Protocol PRN Reason: Hypoglycemia Protocol Stop: 11/19/20 17:24 Glucose (Glucose 40% Gel 15 Gm Tube) 15 - 30 gm PO UD PRN; Protocol PRN Reason: Hypoglycemia Protocol Stop: 11/19/20 17:24 Heparin Sodium (Porcine) (Heparin Sod 5,000 Unit/0.5 Ml Vial) 5,000 units SQ Q12 BOZENA Stop: 11/19/20 20:59 Last Admin: 10/20/20 19:47 Dose: 5,000 units Documented by: Lactated Ringer's (Lr) 1,000 mls @ 100 mls/hr IV .Q10H BOZENA Stop: 11/18/20 16:10 Last Admin: 10/20/20 21:56 Dose: 100 mls/hr Documented by: Insulin Aspart (Insulin Aspart 100 Units/Ml 3 Ml Pen) 0 units SC ACHS BOZENA Stop: 11/19/20 20:59 Last Admin: 10/20/20 21:26 Dose: Not Given Documented by: Menthol (Cough Drop (Sugar Free) Dipesh 24 Dipesh/1 Box) 1 dipesh BUCCAL Q1H PRN PRN Reason: Sore Throat Stop: 11/19/20 17:44 Last Admin: 10/20/20 18:09 Dose: 1 dipesh Documented by: Miscellaneous (Carbohydrates For Hypoglycemia ) 15 - 30 gm PO UD PRN PRN Reason: Hypoglycemia Protocol Stop: 11/19/20 17:24 Morphine Sulfate (Morphine Sulfate 2 Mg/Ml Carp) 1 mg IV Q3H PRN PRN Reason: Pain (1,2,3,4,5) & Pre PT Stop: 11/02/20 16:10 Last Admin: 10/20/20 04:27 Dose: 1 mg Documented by: Morphine Sulfate (Morphine Sulfate 2 Mg/Ml Carp) 2 mg IV Q3H PRN PRN Reason: Pain (6,7,8,9,10) Stop: 11/02/20 16:10 Last Admin: 10/20/20 19:46 Dose: 2 mg Documented by: Multivitamins (Multivitamin Tab) 1 tab PO DAILY BOZENA Stop: 11/19/20 08:59 Last Admin: 10/20/20 08:46 Dose: 1 tab Documented by: Ondansetron HCl (Ondansetron Inj 2 Mg/Ml 2 Ml Vial) 4 mg IV Q6H PRN PRN Reason: Nausea And Vomiting Stop: 11/18/20 16:10 Oxycodone HCl (Oxycodone Hcl Ir 5 Mg Tab (Immediate Release)) 5 mg PO Q4H PRN PRN Reason: MODERATE Pain (4,5,6) & Pre PT Stop: 11/02/20 16:10 Oxycodone HCl (Oxycodone Hcl Ir 5 Mg Tab (Immediate Release)) 10 mg PO Q4H PRN PRN Reason: SEVERE Pain (7,8,9,10) Stop: 11/02/20 16:10 Last Admin: 10/21/20 07:43 Dose: 10 mg Documented by: Pantoprazole Sodium (Pantoprazole 40 Mg Tab) 40 mg PO DAILY PRN PRN Reason: Acid Reflux Stop: 11/18/20 16:19 PG Care Time/CCT Total # of Minutes Spent Total Time Spent with Patient: Total time spent is greater than 50% in coordination of care (as documented) at patient's floor/unit and/or counseling patient: Coding Level of Care Code 59648 Subseq Hosp Care Lvl 3 Diagnoses Acute postoperative pulmonary insufficiency J95.2 Renal lesion N28.9 New onset type 2 diabetes mellitus E11.9 GERD (gastroesophageal reflux disease) K21.9 Acute blood loss anemia D62 History of COVID-19 Z86.16 Obesity (BMI 30-39.9) E66.9
[2020-10-21] MEDS: LACTATED RINGER'S 1,000 ML IV SCH ×2 (08:41→19:10)
[2020-10-21] MEDS: INSULIN ASPART 100 UNITS/ML 3 ML PEN SC SCH ×3 (08:44→18:02)
[2020-10-21] MEDS: MULTIVITAMIN TAB PO SCH (08:45)
[2020-10-21] MEDS: ASCORBIC ACID 500 MG TAB PO SCH (08:45)
[2020-10-21] MEDS: HEPARIN SOD 5,000 UNIT/0.5 ML VIAL SQ SCH ×2 (08:46→21:22)
[2020-10-21] MEDS ORDERED: Nursing to Pharmacy Communication SCH (09:00)
[2020-10-21] MEDS ORDERED: ALBUTEROL 0.083% NEBU SOLN 3 ML VIAL NEB STA (09:10)
--- NOTE | 2020-10-21 09:41 | Urology Progress Note ---
Date of Service October 21, 2020 Assessment & Plan (1) Renal lesion: POD#2 s/p R robotic partial nephrectomy - challenging night - labs today showing improved renal function (cr 1.3) - hgb 8.6 - essentially stable - clinically, seems to be better today - (HR improved, O2 sats improved) - appreciate the hospitalist input - as a team, we have debated the best next steps - she reports she had an extremely difficult time - with very similar issues - after her hysterectomy - factoring all recently completed tests and her physical exam today, I favor supportive care throughout the day today - hold on CT chest for the time being - albuterol provided by hospitalist team - ice chips and sips for diet - ambulate - pain control - if decompensates throughout the day, we can revisit the role of CT Admission and Anticipated Discharge Date Admission Date: October 19, 2020 Subjective Challenging night became quite uncomfortable yesterday afternoon exhibited oxygen desaturations while walking tachycardia abdominal discomfort discomfort with deep breathing KUB - distended loops of bowel CXR - underdistended lungs CT abd - expected perinephric inflammation without bleed, modest distention of bowel - in line with expectations for post op day #1 s/p abdomina surgery Doppler US - no DVT in either leg Physical Exam Physical Exam: Uncomfortable appearing but nontoxic appearing Not tachycardic on evaluation today Abdomen distended but soft, appropriately tender Incisions appropriate Serosanguineous output from her SHAWN No Claudio catheter in place Minimal edema of her lower extremities Results & Data ([facility]) Vital Signs (Past 12 Hours) Vital Signs Temp Pulse Resp BP BP Pulse Ox 10/21/20 09:26 67 16 95 10/21/20 07:49 120 H 93 10/21/20 07:48 122 H 84 L 10/21/20 07:13 37.1 C 118 H 20 132/78 91 10/20/20 23:12 37.3 C 126 H 18 121/72 92 PG Care Time/CCT Total # of Minutes Spent Total Time Spent with Patient: Total time spent is greater than 50% in coordination of care (as documented) at patient's floor/unit and/or counseling patient: Coding Level of Care Code 34810 Subseq Hosp Care Lvl 3 Diagnoses Renal lesion N28.9
[2020-10-21] MEDS: MoRPHine SULFATE 2 MG/ML CARP IV PRN ×4 (10:29→22:17)
[2020-10-21] MEDS: ALBUTEROL 0.083% NEBU SOLN 3 ML VIAL NEB PRN (19:49)
[2020-10-21] MEDS: oxyCODONE HCL IR 5 MG TAB (IMMEDIATE RELEASE) PO SCH (21:22)
[2020-10-21] MEDS ORDERED: FAMOTIDINE 10 MG TABLET PO ONE (22:32)
[2020-10-21] MEDS: ACETAMINOPHEN 325 MG TAB PO PRN (23:54)
[2020-10-22] MEDS ORDERED: oxyCODONE HCL IR 5 MG TAB (IMMEDIATE RELEASE) PO SCH
[2020-10-22] MEDS: INSULIN ASPART 100 UNITS/ML 3 ML PEN SC SCH ×6 (00:30→21:40)
[2020-10-22] MEDS: MoRPHine SULFATE 2 MG/ML CARP IV PRN ×6 (01:04→23:33)
[2020-10-22] MEDS: oxyCODONE HCL IR 5 MG TAB (IMMEDIATE RELEASE) PO SCH ×4 (03:13→21:37)
[2020-10-22] MEDS: LACTATED RINGER'S 1,000 ML IV SCH (05:54)
[2020-10-22 07:25] LABS: Basophils # (auto) 0.02 K/uL (0-0.2); Basophils % (auto) 0.2 %; Eosinophils # (auto) 0.43 K/uL (0-0.5); Eosinophils % (auto) 4.6 %; Hematocrit (blood only) 28.5 % (37-47); Hemoglobin 8.4 g/dL (12.0-16.0); Immature Granulocytes # (auto) 0.01 K/uL (0.00-0.02); Immature Granulocytes % (auto) 0.1 %; Lymphocytes # (auto) 1.51 K/uL (1.2-3.4); Lymphocytes % (auto) 16.2 %; Mean Corpuscular Hemoglobin 24.7 pg (25-34); Mean Corpuscular Hgb Conc 29.5 g/dL (32-36); Mean Corpuscular Volume 83.8 fL (80-100); Mean Platelet Volume 9.4 fL (7.4-10.4); Monocytes # (auto) 0.86 K/uL (0.11-0.59); Monocytes % (auto) 9.2 %; Neutrophils # (auto) 6.48 K/uL (1.4-6.5); Neutrophils % (auto) 69.7 %; Platelet Count 252 K/uL (130-400); RDW Coefficient of Variation 18.3 % (11.5-14.5); RDW Standard Deviation 56.7 fL (36.4-46.3); White Blood Count 9.31 K/uL (4.8-10.8)
[2020-10-22 07:56] LABS: Calcium 8.9 mg/dl (8.5-10.1); Creatinine Clr Calc Pharmacy 82.1 ml/min; Est GFR (Non-African American) 67.3; Potassium 3.6 mmol/L (3.5-5.1)
[2020-10-22] MEDS: ALBUTEROL 0.083% NEBU SOLN 3 ML VIAL NEB PRN (08:09)
--- NOTE | 2020-10-22 08:24 | Urology Progress Note ---
Date of Service October 22, 2020 Assessment & Plan (1) Renal lesion: S/p R robotic partial nephrectomy appears much improved today as compared to yesterday resting comfortably HR decreased still on NC O2, but sats are gradually improving PLAN: 1. trial of clear liquids 2. d/c drain - may be contibuting to her right sided pain - and breathing issues as it is positioned near her diaphragm 3. ambulate 4. wean O2 - discussed criteria that must be met before d/c home - - off of O2, pain con trolled with oral meds, tolerating a diet - she wants to work towards those goals today Admission and Anticipated Discharge Date Admission Date: October 19, 2020 Subjective Subjectively reports she feels better today than yesterday passed a small amount of flatus feels less distended believes breathing treatments were beneficial no CP still with right flank pain, but controlled with meds Physical Exam Physical Exam: Appears much more comfortable today no resp distress - O2 NC in place abd soft, modestly distended incisions appropriate SHAWN serosang Results & Data ([facility]) Vital Signs (Past 12 Hours) Vital Signs Temp Pulse Resp BP Pulse Ox 10/22/20 08:09 103 H 18 94 10/22/20 07:37 37.2 C 98 H 14 117/77 93 10/21/20 23:42 37.4 C 103 H 16 116/56 L 92 PG Care Time/CCT Total # of Minutes Spent Total Time Spent with Patient: Total time spent is greater than 50% in coordination of care (as documented) at patient's floor/unit and/or counseling patient: Coding Level of Care Code 89314 Subseq Hosp Care Lvl 3 Diagnoses Renal lesion N28.9
[2020-10-22] MEDS: ASCORBIC ACID 500 MG TAB PO SCH (08:37)
[2020-10-22] MEDS: HEPARIN SOD 5,000 UNIT/0.5 ML VIAL SQ SCH ×2 (08:37→21:37)
[2020-10-22] MEDS: MULTIVITAMIN TAB PO SCH (08:38)
[2020-10-22] MEDS: PANTOprazole 40 MG TAB PO SCH (08:38)
[2020-10-22] MEDS ORDERED: Nursing to Pharmacy Communication SCH (09:00)
[2020-10-23] MEDS: oxyCODONE HCL IR 5 MG TAB (IMMEDIATE RELEASE) PO SCH ×4 (03:16→21:20)
[2020-10-23 06:08] LABS: Basophils # (auto) 0.01 K/uL (0-0.2); Basophils % (auto) 0.1 %; Eosinophils # (auto) 0.45 K/uL (0-0.5); Eosinophils % (auto) 4.4 %; Hematocrit (blood only) 27.4 % (37-47); Hemoglobin 8.3 g/dL (12.0-16.0); Immature Granulocytes # (auto) 0.02 K/uL (0.00-0.02); Immature Granulocytes % (auto) 0.2 %; Lymphocytes % (auto) 13.7 %; Mean Corpuscular Hemoglobin 24.9 pg (25-34); Mean Corpuscular Hgb Conc 30.3 g/dL (32-36); Mean Platelet Volume 9.7 fL (7.4-10.4); Monocytes # (auto) 1.24 K/uL (0.11-0.59); Monocytes % (auto) 12.1 %; Neutrophils # (auto) 7.13 K/uL (1.4-6.5); Neutrophils % (auto) 69.5 %; Nucleated RBC # (auto) 0.02 K/uL (0-0); Nucleated RBC % (auto) 0.2 %; Platelet Count 328 K/uL (130-400); RDW Coefficient of Variation 18.2 % (11.5-14.5); RDW Standard Deviation 55.5 fL (36.4-46.3); Red Blood Count 3.34 M/uL (4.2-5.4); White Blood Count 10.25 K/uL (4.8-10.8)
[2020-10-23 06:50] LABS: BUN Creatinine Ratio 6.4 (10-20); Calcium 8.2 mg/dl (8.5-10.1); Creatinine Clr Calc Pharmacy 76.6 ml/min; Est GFR (African American) 71.7; Est GFR (Non-African American) 61.9; Potassium 3.3 mmol/L (3.5-5.1)
[2020-10-23] MEDS: ACETAMINOPHEN 325 MG TAB PO PRN ×3 (07:16→20:01)
[2020-10-23] MEDS: PANTOprazole 40 MG TAB PO SCH (09:08)
[2020-10-23] MEDS: MULTIVITAMIN TAB PO SCH (09:08)
[2020-10-23] MEDS: ASCORBIC ACID 500 MG TAB PO SCH (09:08)
[2020-10-23] MEDS: HEPARIN SOD 5,000 UNIT/0.5 ML VIAL SQ SCH ×2 (09:09→21:20)
[2020-10-23] MEDS: INSULIN ASPART 100 UNITS/ML 3 ML PEN SC SCH ×4 (09:27→21:26)
[2020-10-23] MEDS: INSULIN GLARGINE SOLOSTAR 100 UNITS/ML 3 ML PEN SC SCH (10:08)
[2020-10-23] MEDS: POTASSIUM CHLORIDE CRTAB 20 MEQ TABCR PO SCH ×3 (10:08→21:20)
--- NOTE | 2020-10-23 13:16 | Electrocardiogram Report ---
Test Reason : Blood Pressure : / mmHG Vent. Rate : 119 BPM Atrial Rate : 119 BPM P-R Int : 140 ms QRS Dur : 088 ms QT Int : 306 ms P-R-T Axes : 039 044 007 degrees QTc Int : 430 ms Sinus tachycardia Otherwise normal ECG When compared with ECG of 12-OCT-2020 09:50, Premature supraventricular complexes are no longer Present T wave inversion now evident in Inferior leads Confirmed by Rogers Sapp ([id number]) on 10/23/2020 1:16:29 PM Referred By: Juan Diego Rich Confirmed By:Rgoers Sapp
--- NOTE | 2020-10-23 13:35 | Urology Progress Note ---
Date of Service October 23, 2020 Assessment & Plan (1) Renal lesion: POD4 S/p R robotic partial nephrectomy Ambulating without O2. Tolerating diet. Tolerating activity. Minimal pain med requirement. NO other changes or issues. Motivated to go home. Flatus and BM today. NO issues with diet. Discharge planning. Discussed post care. Plan for discharge today. Admission and Anticipated Discharge Date Admission Date: October 19, 2020 Subjective Postop from urologic surgery. Issues with pulm and hypoxia over weekend have resolved. Patient is up and ambulating without O2. NO issues or dizziness. Patient has been tolerating well, but is having some pain and discomfort treated with tylenol. Incisions have been mild sore. Having some abdominal distension/gas pains. Flatus and small BM today. Has not had severe pain or uncontrollable pain. Patient has been ambulating. No new nausea or vomiting. Review of Systems Review of Systems: All systems reviewed & are unremarkable except as noted in HPI & below Physical Exam Physical Exam: General: Alert in no acute distress. HEENT: Normocephalic Atraumatic. Inspection normal. Cranial Nerves 2-12 Grossly intact. Normal inspection of face. Normal inspection of neck. Psychologic: Normal affect. Respiratory: Nonlabored. No use of accessory muscles. No tachypnea or dyspnea. Cardiovascular: No tachycardia Skin: [place] and Dry. No rashes or visible lesions. Extremities/Lymphatics: No edema Abdomen: Appropriately tender. Mild distended. No rebound or guarding. Wound: Clean, dry, covered. Results & Data ([facility]) Vital Signs (Past 12 Hours) Vital Signs Temp Pulse Resp BP Pulse Ox 10/23/20 09:54 108 H 93 10/23/20 07:23 36.9 C 98 H 16 118/75 96 PG Care Time/CCT Total # of Minutes Spent Total Time Spent with Patient: Total time spent is greater than 50% in coordination of care (as documented) at patient's floor/unit and/or counseling patient: Coding Level of Care Code 35149 Subseq Hosp Care Lvl 2 Diagnoses Renal lesion N28.9
--- NOTE | 2020-10-23 13:37 | Discharge Summary ---
Date of Service October 23, 2020 Admission HPI Per Admitting Provider Patient here for procedure. No changes in medical issues. No major changes in urinary issues. Continued issues and concerns. No change in pain or discomfort. No severe fevers or chills. No chest pain or shortness of breath. Risks and benefits discussed at length for procedure. These include bleeding, infection, injury to surrounding tissues or organs, and risks associated with anesthesia. Patient and/or family states understanding and agrees to proceed. Consent and supporting information completed. Admission Exam Per Admitting Provider See H&P Principal Diagnosis Right Renal Mass suspicious for malignancy. Discharge Exam General: Alert in no acute distress. HEENT: Normocephalic Atraumatic. Inspection normal. Psychologic: Normal affect. Skin: [place] and Dry. No rashes or visible lesions. Abdomen: Soft Non-distended. No rebound or guarding. Discharge Data Allergies Allergy/AdvReac Type Severity Reaction Status Date / Time bacitracin Allergy Rash Verified 10/19/20 08:03 [From Neosporin ([id number])] neomycin Allergy Rash Verified 10/19/20 08:03 [From Neosporin ([id number])] polymyxin B Allergy Rash Verified 10/19/20 08:03 [From Neosporin ([id number])] Iodinated Contrast Media AdvReac Intermediate Chest Verified 10/19/20 08:03 pain, shortness of breath, throat tightness Consultations 10/20/20 15:54 Consult Hospitalist Routine Procedures Performed Operation Date: 10/19/20 09:05 Actual Procedures p Right Robotic Laparoscopic Assisted Partial Nephrectomy(Right) - Juan Diego Rich DO Ordered Studies 10/20/20 21:36 US venous doppler LE BI Urgent 10/20/20 22:16 CT abd pelvis wo con Urgent Hospital Course (1) Renal lesion: POD4 S/p R robotic partial nephrectomy Ambulating without O2. Tolerating diet. Tolerating activity. Minimal pain med requirement. NO other changes or issues. Motivated to go home. Flatus and BM today. NO issues with diet. Discharge planning. Discussed post care. Plan for discharge today. Total Time Total Time Spent Total Time Spent (In Minutes): 10 minutes Total Time Includes: Examination of the Patient, Discharge Planning, Medication Reconciliation and Communication With Other Providers Discharge Plan Discharge Items Patient Disposition: Home - Self-Care Reason For Visit: Renal Lesion Right Discharge Diagnosis: Renal Lesion Right Condition on Discharge: Good Activity: Resume your previous activity Lifting: No more than 25 pounds Bathing Comment: OK to shower in 1 day, no tub bath or soaking Sexual Activity: Wait until after follow-up appointment Exercise/Sports: Wait until after follow-up appointment Driving/Machine Use: No driving while taking prescription pain medication Non-emergency contact: Urologist Call non-emergency contact if: your pain is not controlled, you have a fever, your temperature is above 101, your wound has increased redness, your wound has increased drainage and your wound pain has increased Follow-up/Referrals: Juan Diego Rich DO [Primary Care Provider] - 10/31/20 2:00 pm Diet: Regular Addtl Attending Provider Instructions: Please take all medications as prescribed and keep all follow-ups as scheduled. Please call our office at [phone] with any questions, concerns or need to reschedule appointments for any reason. We are happy to assist you. Recovering at home: We recommend having someone with you for the first few days after surgery to help care for you. It is okay to shower tomorrow. Please avoid swimming, bathing or using hot tub until incisions are well healed. Avoid driving until you are not requiring pain medication any further. Walk at least a few times a day. Increase your distance, as you feel able. Stairs in your home are okay. Please avoid strenuous or sexual activity until your follow-up. We recommend using stool softener (i.e. Colace) to prevent constipation and straining, especially the first two weeks post operatively. Call [facility] at [phone] if you experience: Chest pain or trouble breathing (call 154 or go to the hospital). Fever of 101F or higher Symptoms of infection at incision site, including redness or swelling, warmth, or bad-smelling drainage If you have catheter, and you notice: o Bloody urine or drainage that is dark red or has large clots (Please remember a small amount of blood is normal) o No drainage from the catheter for more than 6 hours o The catheter comes out of your bladder Pain that is not controlled with medicines Pending Studies at Discharge: Yes Stand-Alone Forms: My [employer], Smoking Cessation Medications and DC Order Prescriptions: New oxycodone-acetaminophen [Percocet] 5-325 mg tablet 1 tab PO TID PRN (Reason: pain) Qty: 14 RF: 0 docusate sodium [Colace] 100 mg capsule 100 mg PO BID Qty: 60 RF: 0 Continued multivitamin Tablet 1 tab PO DAILY RF: 0 omeprazole magnesium [Prilosec OTC] 20 mg Tablet,Delayed Release (Dr/Ec) 20 mg PO DAILY PRN (Reason: Acid Reflux) RF: 0 cholecalciferol (vitamin D3) [Vitamin D3] 25 mcg (1,000 unit) Tablet 0 mcg PO DAILY RF: 0 turmeric 400 mg Capsule 0 mg PO DAILY RF: 0 ascorbic acid (vitamin C) [Vitamin C] 500 mg Tablet 500 mg PO DAILY RF: 0 Discontinued ibuprofen 400 mg Tablet 400 mg PO Q8H PRN (Reason: Pain) RF: 0 acetaminophen [Tylenol Extra Strength] 500 mg Tablet 1,000 mg PO Q6H PRN (Reason: pain) RF: 0 Discharge Orders: Discharge Order (Routine); Ordered 10/23/20 Ordered By: Juan Diego Rich Admission Data Admit Date/Time: 10/19/20 14:07 Attending Provider: Juan Diego Rich Admit Provider: Juan Diego Rich Primary Care Provider: Juan Diego Rich Other Providers: Luz Davis ; Dru Ac ; Maik Rosa ; Helen Nuno ; Tommy Zavaleta ; German Rodriguez ; Vladimir Sanders Natalie B. ; Ade Littlejohn ; Tatiana Acevedo ; Deo Hernandez ; Nadia Yan ; Nandini Saleem ; Shaun Winn ; Conrad Hoang ; Kelle Layton ; Darvin Hung ; Stanley Pelaez ; Angie Leal ; Nico Vazquez ; Vj Samaniego ; Dru Booker ; Steve Ramirez ; Olivia Jj ; Basilio Oliva ; Kennedy Ward Coding Level of Care Code D/C Day Management <30 mins Diagnoses Renal lesion N28.9
--- NOTE | 2020-10-23 14:30 | Hospitalist Progress Note ---
Date of Service October 23, 2020 Assessment & Plan (1) Dyspnea on exertion: Patient had acute post-op pulmonary insufficiency. Although NC O2 has been weaned off, and O2 sats at rest are acceptable, she has ongoing FERRARO and O2 sats with walking are borderline low. Her last cxr showed considerable atelectasis. Her ongoing FERRARO and sinus tach are concerning for PE. Unfortunately she has a contrast allergy. Will initiate pre-contrast prednisone protocol (50mg prednisone q6h x 3 doses along with benadryl prior to CT contrast). CTA chest ordered for 10/24/20 at 0330. Of note - dopplers of legs negative for DVT. If CTA is negative for PE consider anemia contributing to FERRARO, cardiac disease, etc. (2) Tachycardia: Most recent EKG with sinus tach. Anemia could be contributing to this. [id number] I am concerned about PE. See above. No symptoms to suggest hyperthyroidism. (3) Acute postoperative pulmonary insufficiency: Supplemental NC O2 has been weaned off, but she continues with FERRARO and radha rderline hypoxia with walking. CTA chest ordered - see above. (4) Acute kidney injury: Peak Cr 1.5 following her surgery; now 1. Resolved. (5) Acute blood loss anemia: Hb 8.3 today. Pre-op Hb 11.2. Start ferrous sulfate 325mg BID. Repeat CBC in am. (6) Renal lesion: s/p partial right nephrectomy on 10/19/[address] Rich (POD #4). Stable from urological standpoint. I spoke with Dr Rich today re: my concerns about her FERRARO and tachycardia. He is aware of plan for CTA chest. Cr stable. Eating/drinking ok. +stool/flatus. (7) New onset type 2 diabetes mellitus: HbA1C 7.3%. Uncontrolled. Increase novolog. Add lantus. (8) GERD (gastroesophageal reflux disease): Continue PPI. (9) History of COVID-19: Dx 08/2020. 10/12/20 COVID testing negative. Clinically resolved. (10) Obesity (BMI 30-39.9): BMI 38. (11) Hypokalemia: Check mag in am. Start K-dur 20meq TID. Repeat BMP am. (12) DVT prophylaxis: Heparin 5000 BID. CTA Chest tonight to exclude PE. Recent dopplers of legs neg for DVT. Admission and Anticipated Discharge Date Admission Date: October 19, 2020 Subjective Patient hoping for discharge today. However, she does admit to mild FERRARO. No cough. O2 sats at rest are low 90s. During the visit I took the patient for walk around the unit. HR peaked in the 130s. O2 sats dropped to 89% at conclusion of walk. She did indeed have mild FERRARO towards the end of the walk. Denies chest pain, pleuritic pain. Minimal abd pain. No nausea. Passing flatus and has had stool. Tolerating diet. Review of Systems Constitutional: + fever; no chills, no fatigue and no anorexia Respiratory: + dyspnea on exertion; no cough Cardiovascular: no chest pain Gastrointestinal: no nausea and no vomiting Physical Exam Constitutional: no acute distress and no altered mental status ENMT: external ear and nose normal, oropharynx normal Respiratory: no respiratory distress Auscultation: + diminished lung sounds (bases) Cardiovascular: Rate/Rhythm: regular rhythm and + tachycardic Heart Sounds: normal S1 and normal S2; no murmur Vessels: posterior tibial pulses present and dorsalis pedis pulses present; no JVD Extremities: no edema Gastrointestinal (Abdomen): normal bowel sounds, soft, nontender, no hepatosplenomegaly Skin: + pallor Psychiatric: Orientation: alert and oriented x 3 Results & Data Results & Data ([facility]) Vital Signs (Past 12 Hours) Vital Signs Temp Pulse Resp BP BP Pulse Ox 10/23/20 13:45 36.9 C 108 H 16 143/76 H 118/75 93 10/23/20 09:54 108 H 93 10/23/20 07:23 36.9 C 98 H 16 118/75 96 Laboratory Results Laboratory Results - last 24 hr 10/22/20 10/22/20 10/23/20 17:18 20:38 05:41 WBC 10.25 RBC 3.34 L Hgb 8.3 L Hct 27.4 L MCV 82.0 MCH 24.9 L MCHC 30.3 L RDW Std Deviation 55.5 H RDW Coeff of Veronique 18.2 H Plt Count 328 MPV 9.7 Immature Gran % (Auto) 0.2 Neut % (Auto) 69.5 Lymph % (Auto) 13.7 [place] % (Auto) 12.1 Eos % (Auto) 4.4 Baso % (Auto) 0.1 Neut # (Auto) 7.13 H Lymph # (Auto) 1.40 [place] # (Auto) 1.24 H Eos # (Auto) 0.45 Baso # (Auto) 0.01 Immature Gran # (Auto) 0.02 Absolute Nucleated RBC 0.02 H Nucleated RBC % (auto) 0.2 Sodium Potassium Chloride Carbon Dioxide Anion Gap BUN Creatinine Est Cr Clr Drug Dosing Est GFR ( Amer) Est GFR (Non-Af Amer) BUN/Creatinine Ratio Glucose POC Glucose 95 113 H Calcium 10/23/20 10/23/20 10/23/20 05:41 09:14 11:59 WBC RBC Hgb Hct MCV MCH MCHC RDW Std Deviation RDW Coeff of Veronique Plt Count MPV Immature Gran % (Auto) Neut % (Auto) Lymph % (Auto) [place] % (Auto) Eos % (Auto) Baso % (Auto) Neut # (Auto) Lymph # (Auto) [place] # (Auto) Eos # (Auto) Baso # (Auto) Immature Gran # (Auto) Absolute Nucleated RBC Nucleated RBC % (auto) Sodium 137 Potassium 3.3 L Chloride 104 Carbon Dioxide 28 Anion Gap 5.0 BUN 7 Creatinine 1.05 Est Cr Clr Drug Dosing 76.6 Est GFR ( Amer) 71.7 Est GFR (Non-Af Amer) 61.9 BUN/Creatinine Ratio 6.4 L Glucose 124 H POC Glucose 237 H 102 H Calcium 8.2 L PG Care Time/CCT Total # of Minutes Spent Total Time Spent with Patient: Total time spent is greater than 50% in coordination of care (as documented) at patient's floor/unit and/or counseling patient: Coding Level of Care Code 70946 Subseq Hosp Care Lvl 3 Diagnoses Dyspnea on exertion R06.00 Tachycardia R00.0 Acute postoperative pulmonary insufficiency J95.2 Acute kidney injury N17.9 Acute blood loss anemia D62 Renal lesion N28.9 New onset type 2 diabetes mellitus E11.9 GERD (gastroesophageal reflux disease) K21.9 Esophagitis presence: without esophagitis History of COVID-19 Z86.16 Obesity (BMI 30-39.9) E66.9 Hypokalemia E87.6 DVT prophylaxis Z29.9 (1) GERD (gastroesophageal reflux disease) Esophagitis presence: without esophagitis Qualified Code(s): K21.9 - Gastro- esophageal reflux disease without esophagitis
[2020-10-23] MEDS ORDERED: diphenhydrAMINE Capsule 25 MG CAP PO ONE (14:45)
[2020-10-23] MEDS: predniSONE 50 MG TAB PO SCH ×2 (15:04→21:20)
[2020-10-23] MEDS: ALBUTEROL 0.083% NEBU SOLN 3 ML VIAL NEB PRN (15:29)
[2020-10-23] MEDS: FERROUS SULFATE 325 MG TAB PO SCH (21:20)
[2020-10-24] MEDS ORDERED: diphenhydrAMINE Capsule 25 MG CAP PO ONE (02:30)
[2020-10-24] MEDS: ACETAMINOPHEN 325 MG TAB PO PRN (03:04)
[2020-10-24] MEDS: predniSONE 50 MG TAB PO SCH (03:04)
[2020-10-24] MEDS: oxyCODONE HCL IR 5 MG TAB (IMMEDIATE RELEASE) PO SCH ×2 (03:04→09:08)
[2020-10-24] MEDS ORDERED: OPTIRAY 320 125ml IV ONE (03:40)
[2020-10-24 06:12] LABS: Basophils # (auto) 0.02 K/uL (0-0.2); Basophils % (auto) 0.2 %; Eosinophils # (auto) 0.01 K/uL (0-0.5); Eosinophils % (auto) 0.1 %; Hematocrit (blood only) 31.6 % (37-47); Hemoglobin 9.5 g/dL (12.0-16.0); Immature Granulocytes # (auto) 0.03 K/uL (0.00-0.02); Immature Granulocytes % (auto) 0.3 %; Lymphocytes % (auto) 8.6 %; Mean Corpuscular Hemoglobin 24.7 pg (25-34); Mean Corpuscular Hgb Conc 30.1 g/dL (32-36); Mean Corpuscular Volume 82.1 fL (80-100); Mean Platelet Volume 9.5 fL (7.4-10.4); Monocytes # (auto) 0.31 K/uL (0.11-0.59); Monocytes % (auto) 3.3 %; Neutrophils # (auto) 8.13 K/uL (1.4-6.5); Neutrophils % (auto) 87.5 %; Platelet Count 408 K/uL (130-400); RDW Coefficient of Variation 17.7 % (11.5-14.5); RDW Standard Deviation 53.6 fL (36.4-46.3); Red Blood Count 3.85 M/uL (4.2-5.4)
[2020-10-24 06:49] LABS: BUN Creatinine Ratio 11.3 (10-20); Calcium 9.6 mg/dl (8.5-10.1); Creatinine Clr Calc Pharmacy 77.4 ml/min; Est GFR (African American) 72.6; Est GFR (Non-African American) 62.6; Magnesium 2.3 mg/dl (1.8-2.4); Potassium 4.1 mmol/L (3.5-5.1)
--- NOTE | 2020-10-24 06:50 | CT Scan Report ---
CT ANGIOGRAPHY OF THE CHEST, PULMONARY EMBOLUS PROTOCOL CLINICAL HISTORY: recent COVID/partial nephrectomy; dyspnea; r/o PE COMPARISON STUDY: Chest radiograph October 20, 2020. TECHNIQUE patient was premedicated for IV dye allergy.: Following IV administration of 94 mL of Optir ay-320, helical axial images of the chest were obtained utilizing the pulmonary embolus protocol. Ma ximal intensity projections and sagittal and coronal reformats were viewed on an independent 3D works tation. IV contrast was administered without complication. Automated exposure control was utilized for the study. A dose lowering technique was utilized adhering to the principles of ALARA. CT DOSE: 619.15 mGy.cm FINDINGS: No pulmonary emboli are identified. There is no thoracic aortic dissection. The size of th e heart is normal. There is no pericardial effusion. There is no pneumothorax. There is a small right pleural effusion. Right lower lobe airspace opacity favors atelectasis. There are numerous small danelle undglass opacities throughout the lungs. There is no cavitation. Central airways are patent. Severe h epatic steatosis is noted. IMPRESSION: 1. No pulmonary emboli identified. 2. Small right pleural effusion. Right lower lobe airspace opacity suggestive of atelectasis. 3. Numerous small groundglass opacities within the lungs consistent with viral pneumonia. 4. Severe hepatic steatosis. ACT 112: Negative or not required by law. Electronically signed by: Mateo Echeverria M.D. 10/24/2020 6:49 AM
[2020-10-24] MEDS: PANTOprazole 40 MG TAB PO SCH (09:04)
[2020-10-24] MEDS: MULTIVITAMIN TAB PO SCH (09:04)
[2020-10-24] MEDS: POTASSIUM CHLORIDE CRTAB 20 MEQ TABCR PO SCH (09:04)
[2020-10-24] MEDS: ASCORBIC ACID 500 MG TAB PO SCH (09:04)
[2020-10-24] MEDS: INSULIN GLARGINE SOLOSTAR 100 UNITS/ML 3 ML PEN SC SCH (09:05)
[2020-10-24] MEDS: INSULIN ASPART 100 UNITS/ML 3 ML PEN SC SCH ×2 (09:05→12:56)
[2020-10-24] MEDS: HEPARIN SOD 5,000 UNIT/0.5 ML VIAL SQ SCH (09:07)
[2020-10-24] MEDS: FERROUS SULFATE 325 MG TAB PO SCH (09:09)
--- NOTE | 2020-10-24 09:14 | Urology Progress Note ---
Date of Service October 24, 2020 Assessment & Plan (1) Renal lesion: Status post right robotic partial nephrectomy Gradually progressing Still requiring oxygen at times Anxious to go home She reports that her respiratory status is not appreciably changed from her preoperative statushas been suffering from dyspnea on exertion since her Covid diagnosis in August She does not have a PE on CT Pending evaluation from the hospitalist teamif we all feel she is stable I think it would be reasonable to discharge her home later today Admission and Anticipated Discharge Date Admission Date: October 19, 2020 Subjective Appears to be much more comfortablehas continued to make progress each day over the past 3 to 4 [address] She had a CT completed overnight No evidence of PE but she does appear to have some residual viral pneumonia She reports that she has had some shortness of breath with exertion since her Covid diagnosis She does not feel she is appreciably different now than she was prior to surgery She has still been using oxygen in the room and when ambulating She will have some testing completed today to assess her degree of desaturation with activity Physical Exam Constitutional: well developed and well nourished Respiratory: no respiratory distress (Nasal cannula O2 in place) Cardiovascular: Extremities: no pedal edema Gastrointestinal (Abdomen): Inspection/Auscultation: abdomen normal to inspection (Incisions healing nicelystaples intact with minimal erythema around them) Results & Data ([facility]) Vital Signs (Past 12 Hours) Vital Signs Temp Pulse Resp BP BP Pulse Ox 10/24/20 07:19 36.3 C L 85 19 130/80 92 10/23/20 23:39 36.5 C 93 H 22 134/76 91 PG Care Time/CCT Total # of Minutes Spent Total Time Spent with Patient: Total time spent is greater than 50% in coordination of care (as documented) at patient's floor/unit and/or counseling patient: Coding Level of Care Code 20573 Subseq Hosp Care Lvl 3 Diagnoses Renal lesion N28.9
--- NOTE | 2020-10-24 11:24 | Hospitalist Progress Note ---
Date of Service October 24, 2020 Assessment & Plan (1) Dyspnea on exertion: Patient had acute post-op pulmonary insufficiency. Now that CTA is back, and PE has been ruled out, I suspect that the respiratory issues this admission was atelectasis and hypoventilation in the setting of recovering lung function from COVID-19 pneumonia in 08/2020. Amazingly she still has evidence of pneumonia from COVID-19 on CTA today. We had lengthy discussion about CTA findings. 2-step was passed. I recommended cessation of vaping, ongoing use of incentive spirometry, etc. Recommended Fe supplementation as anemia will worsen her symptoms and stress her cardiopulmonary system as evidenced by tachycardia. She likely will have some FERRARO after discharge but it should gradually resolve as lungs fully recover from COVID. (2) Tachycardia: Most recent EKG with sinus tach. Anemia likely contributing to this. No PE on CTA chest. No symptoms to suggest hyperthyroidism. Pain/anxiety have also likely contributed to her tachycardia. Fe supplementation to improve anemia. f/u with PCP. (3) History of COVID-19: Dx 08/2020. 10/12/20 COVID testing negative. CTA chest with residual pneumonic infiltrates from her COVID. Lingering FERRARO likely due to recovering lungs from her COVID infection as well as atelectasis -- all in the setting of acute blood loss anemia. (4) Acute postoperative pulmonary insufficiency: See above. Resolved. (5) Acute kidney injury: Peak Cr 1.5 following her surgery; now 1. Resolved. (6) Acute blood loss anemia: Hb 9.5. Pre-op Hb 11.2. Continue ferrous sulfate 325mg daily for 3 months post-dc. f/u PCP for serial CBC and iron studies. (7) Renal lesion: s/p partial right nephrectomy on 10/19/[address] Rich (POD #5). Stable from urological standpoint. (8) New onset type 2 diabetes mellitus: HbA1C 7.3%. Uncontrolled due to steroids and perioperative stress. Seen by DM educator this admission. Prescriptions for test strips and lancets sent to pharmacy for patient. No meds at this time. Check sugars 1x/day at home. f/u PCP for ongoing Rx. (9) GERD (gastroesophageal reflux disease): Continue PPI. (10) Obesity (BMI 30-39.9): BMI 38. (11) Hypokalemia: resolved. 4.1 today. d/c supplementation. (12) Fatty liver: as seen on imaging. discussed dx with patient. weight loss advised. f/u PCP for this. (13) DVT prophylaxis: Heparin 5000 BID while hospitalized. CTA Chest neg for PE. Recent dopplers of legs neg for DVT. from medical standpoint can d/c home today. I added various instructions to d/c paperwork and added ferrous sulfate daily to d/c med list. Admission and Anticipated Discharge Date Admission Date: October 19, 2020 Subjective patient passed 2-step ambulatory O2 test this am - Does NOT need home o2 lowest o2 sats were low 90s in room air. feels good this am. tolerated breakfast. tolerated CT contrast overnight. FERRARO at baseline. mild abdominal discomfort and bloating remain. passing flatus but only mild. has had BM during the stay. no nausea. patient vapes - counseled her on quitting in light of COVID-19 effects on lungs and just overall health. we discussed iron supplementation. she reported long history of Fe deficiency. Review of Systems Constitutional: no fever, no chills and no anorexia Respiratory: + dyspnea on exertion; no cough Cardiovascular: no chest pain Gastrointestinal: no vomiting Physical Exam Constitutional: no acute distress and no altered mental status ENMT: external ear and nose normal, oropharynx normal Respiratory: no respiratory distress Auscultation: + diminished lung sounds (bases) and + crackles (Minimal at bases); no wheezes Cardiovascular: Rate/Rhythm: regular rhythm and + tachycardic Heart Sounds: normal S1 and normal S2; no murmur Vessels: posterior tibial pulses present and dorsalis pedis pulses present; no JVD Extremities: no edema Gastrointestinal (Abdomen): normal bowel sounds, soft, nontender, no hepatosplenomegaly Skin: + pallor Psychiatric: Orientation: alert and oriented x 3 Results & Data Results & Data ([facility]) Vital Signs (Past 12 Hours) Vital Signs Temp Pulse Pulse Pulse Pulse Resp Resp 10/24/20 09:20 121 H 107 H 108 H 22 10/24/20 07:19 36.3 C L 85 19 10/23/20 23:39 36.5 C 93 H 22 Resp Resp BP BP Pulse Ox Pulse Ox Pulse Ox 10/24/20 09:20 20 18 93 95 10/24/20 07:19 130/80 92 10/23/20 23:39 134/76 91 Pulse Ox 10/24/20 09:20 92 10/24/20 07:19 10/23/20 23:39 Laboratory Results Laboratory Results - last 24 hr 10/23/20 10/23/20 10/23/20 11:59 17:07 20:25 WBC RBC Hgb Hct MCV MCH MCHC RDW Std Deviation RDW Coeff of Veronique Plt Count MPV Immature Gran % (Auto) Neut % (Auto) Lymph % (Auto) [place] % (Auto) Eos % (Auto) Baso % (Auto) Neut # (Auto) Lymph # (Auto) [place] # (Auto) Eos # (Auto) Baso # (Auto) Immature Gran # (Auto) Sodium Potassium Chloride Carbon Dioxide Anion Gap BUN Creatinine Est Cr Clr Drug Dosing Est GFR ( Amer) Est GFR (Non-Af Amer) BUN/Creatinine Ratio Glucose POC Glucose 102 H 205 H 234 H Calcium Magnesium 10/24/20 10/24/20 10/24/20 05:38 05:38 08:28 WBC 9.30 RBC 3.85 L Hgb 9.5 L Hct 31.6 L MCV 82.1 MCH 24.7 L MCHC 30.1 L RDW Std Deviation 53.6 H RDW Coeff of Veronique 17.7 H Plt Count 408 H MPV 9.5 Immature Gran % (Auto) 0.3 Neut % (Auto) 87.5 Lymph % (Auto) 8.6 [place] % (Auto) 3.3 Eos % (Auto) 0.1 Baso % (Auto) 0.2 Neut # (Auto) 8.13 H Lymph # (Auto) 0.80 L [place] # (Auto) 0.31 Eos # (Auto) 0.01 Baso # (Auto) 0.02 Immature Gran # (Auto) 0.03 H Sodium 142 Potassium 4.1 D Chloride 111 H Carbon Dioxide 25 Anion Gap 6.0 BUN 12 D Creatinine 1.04 Est Cr Clr Drug Dosing 77.4 Est GFR ( Amer) 72.6 Est GFR (Non-Af Amer) 62.6 BUN/Creatinine Ratio 11.3 Glucose 198 H POC Glucose 214 H Calcium 9.6 D Magnesium 2.3 Diagnostic Findings CTA chest: IMPRESSION: 1. No pulmonary emboli identified. 2. Small right pleural effusion. Right lower lobe airspace opacity suggestive of atelectasis. 3. Numerous small groundglass opacities within the lungs consistent with viral pneumonia. 4. Severe hepatic steatosis. PG Care Time/CCT Total # of Minutes Spent Total Time Spent with Patient: Total time spent is greater than 50% in coordination of care (as documented) at patient's floor/unit and/or counseling patient: Coding Level of Care Code 90475 Subseq Hosp Care Lvl 3 Diagnoses Dyspnea on exertion R06.00 Tachycardia R00.0 History of COVID-19 Z86.16 Acute postoperative pulmonary insufficiency J95.2 Acute kidney injury N17.9 Acute blood loss anemia D62 Renal lesion N28.9 New onset type 2 diabetes mellitus E11.9 GERD (gastroesophageal reflux disease) K21.9 Esophagitis presence: without esophagitis Obesity (BMI 30-39.9) E66.9 Hypokalemia E87.6 Fatty liver K76.0 DVT prophylaxis Z29.9 (1) GERD (gastroesophageal reflux disease) Esophagitis presence: without esophagitis Qualified Code(s): K21.9 - Gastro- esophageal reflux disease without esophagitis
--- NOTE | 2020-11-03 12:56 | Coding Query ---
PATHOLOGY To promote full compliance with coding requirements relating to patient care, physician participation is requested in all cases of fence manufacture supervisor uncertainty. Please assist us with the question(s) below: Please review the Pathology report and please document any relevant diagnosis(es) below: Diagnosis(es): Renal Cell Carcinoma Thank you Netta SARAH
--- NOTE | 2020-11-03 12:58 | Coding Query ---
Your help is needed for correct coding of this account; please clarify if the patients Post-operative Ileus was: ( x) expected out of the surgery (brando lopez - this is expected) ( ) unexpected complication from the surgery ( x)other please specify: please refer this question the attending physician Thank you Netta SARAH
== END 2020-10-24 13:31 | disposition home or self-care (01) | DRG 656 ==
LOC: ASU 07:28 → SUATTDRO 14:07 → 3W 14:07